=== PATIENT | female | born 1935 | race Caucasian/White ===

== ENCOUNTER 2016-08-04 13:16 | Inpatient (IN) | payer OTHER ==
[2016-08-04] MEDS ORDERED: TYLENOL PO PRN ×2 (15:14→15:20)
[2016-08-04 15:41] LABS: MANUAL DIFF NEEDED? NO
[2016-08-04 15:42] LABS: BASO% 0.5 % (0.0-0.8); EOS# 0.23 X1000 (0.0-0.7); HEMATOCRIT 37.3 % (37.0-47.0); HEMOGLOBIN 11.6 g/dL (12.0-16.0); IMM GRAN# 0.01 X1000 (0.0-0.04); IMM GRAN% 0.1 % (0.0-0.5); LYMPH# 1.61 X1000 (1.2-3.4); LYMPH% 21.2 % (20.5-51.1); MCH 27.1 PG (27-31); MCHC 31.1 g/dL (33-37); MCV 87.1 FL (81-99); MONO# 0.58 X1000 (0.11-0.59); MONO% 7.6 % (1.7-9.3); MPV 9.2 FL (7.4-10.4); NEUT% 67.6 % (42.2-75.2); PLT 346 X1000 (130-400); RBC 4.28 XMIL (4.2-5.4)
--- NOTE | 2016-08-04 15:45 | HISTORY AND PHYSICAL ---
PRIMARY CARE PHYSICIAN: Boy Conde MD. CHIEF COMPLAINT: Sent from wound care by Dr. Dc Sanchez, Surgery, for a nonhealing wound to her right calf. HISTORY OF PRESENTING ILLNESS: This is an 80-year-old, female who was sent [facility] today as a direct admit by Dr. Dc Sanchez, Surgeon, for a nonhealing wound to her right calf. States he has been following her for a couple of weeks and she has not had any improvement in the treatment and feels that she needs IV antibiotics. So, she will be admitted for further evaluation and treatment. The patient is noted to have a dressing to her right calf at this time. She is noted to have some erythema and some mild warmth surrounding the wound. Dressing left dry and intact. She will be admitted for further evaluation and treatment. PAST MEDICAL HISTORY: Paroxysmal atrial fibrillation. Dementia, osteoarthritis , colon cancer, COPD, gastritis. PAST SURGICAL HISTORY: Of a hernia repair. FAMILY HISTORY: Noncontributory. SOCIAL HISTORY: She currently lives with family. Denies any tobacco, alcohol, or illicit drug use. ALLERGIES: Aspirin and sulfa drugs. HOME MEDICATIONS: A current list will be obtained and we will restart as appropriate. LABORATORY DATA: The patient is a direct admit and we are currently obtaining stat CBC and CMP. REVIEW OF SYSTEMS: She denies any fever, chills, blurred vision, dizziness, chest pain, coughing, shortness of breath. Denies any constipation, diarrhea, burning or hurting with urination. Has some mild pain to her right calf related to her nonhealing ulcer. PHYSICAL EXAMINATION: VITAL SIGNS: Currently being obtained by nursing staff as she was a direct admit. GENERAL: This is an 80-year-old female who is sitting up in the bed, and answers questions appropriately. HEENT: Normocephalic and atraumatic. Pupils are equal, round, reactive to light. Extraocular movements are intact. Oropharynx and nares are clear. NECK: Supple. LUNGS: Clear to auscultation bilaterally with equal lung expansion and chest wall movement. HEART: With regular rate and rhythm. No murmurs, rubs, or gallops. ABDOMEN: Soft, nontender, nondistended. Bowel sounds are present x4 quadrants. EXTREMITIES: There is no clubbing, cyanosis, or edema. NEUROLOGICAL: The cranial nerves 2-12 are grossly intact. ASSESSMENT: 1. Nonhealing wound ulcer to right posterior calf. 2. History of paroxysmal atrial fibrillation. 3. Dementia. 4. Osteoarthritis. PLAN: She was admitted as a direct admit from the [facility] by Dr. Sanchez today to the hospitalist service. Placed on telemetry. Healthy heart diet. We will consult Dr. Sanchez. Consult Wound Care. Check labs as previously stated. Placed on clindamycin 600 mg IV q.8, Tylenol 650 mg p.o. q.4 hours p.r.n., and Zofran 4 mg IV q.4 hours p.r.n. Further orders may be required after reviewing lab results. Dictated by CHAGO Goode for Leo Romano MD pt examined, agree with clindamycin, will add vancomycin until clinically improved and dc on clinda,will check venous doppler, arterial studies were negative recently; otherwise agree with above, [facility]
[2016-08-04 15:57] LABS: ALBUMIN 4.3 g/dL (3.5-5.0); CALCIUM 9.4 mg/dL (8.8-10.2); POTASSIUM 3.4 mmol/L (3.5-5.1); TOTAL BILIRUBIN 0.3 mg/dL (0.20-1.00); TOTAL PROTEIN 6.6 g/dL (6.3-8.3)
[2016-08-04] MEDS: CLINDAMYCIN 600 MG/NS 50 ML IV SCH ×2 (17:14→23:04)
[2016-08-04] MEDS ORDERED: KLOR-CON PO ONE (17:31)
[2016-08-04] MEDS ORDERED: VANCOMYCIN IV PER PHARMACY MISC SCH (18:00)
[2016-08-04] MEDS: ULTRAM PO PRN (18:44)
[2016-08-04] MEDS ORDERED: VANCOMYCIN 1,200 MG in NS 250 ML IV ONE (19:00)
[2016-08-04] MEDS ORDERED: BLISTEX MEDICATED BERRY LIP BALM TOP PRN (21:58)
[2016-08-04] MEDS: CALTRATE 600 PO SCH (21:59)
[2016-08-04] MEDS: VITAMIN D PO SCH (21:59)
[2016-08-04] MEDS: SANTYL OINT TOP SCH (21:59)
[2016-08-05] MEDS: ULTRAM PO PRN ×2 (03:53→21:49)
[2016-08-05 06:13] LABS: MANUAL DIFF NEEDED? NO
[2016-08-05 06:21] LABS: BASO% 0.7 % (0.0-0.8); EOS# 0.34 X1000 (0.0-0.7); HEMATOCRIT 33.8 % (37.0-47.0); HEMOGLOBIN 10.2 g/dL (12.0-16.0); IMM GRAN# 0.01 X1000 (0.0-0.04); IMM GRAN% 0.2 % (0.0-0.5); LYMPH# 1.42 X1000 (1.2-3.4); MCH 26.4 PG (27-31); MCHC 30.2 g/dL (33-37); MCV 87.6 FL (81-99); MONO# 0.65 X1000 (0.11-0.59); MONO% 11.4 % (1.7-9.3); MPV 9.6 FL (7.4-10.4); NEUT% 56.7 % (42.2-75.2); PLT 335 X1000 (130-400); RBC 3.86 XMIL (4.2-5.4)
[2016-08-05 06:49] LABS: AGAP 6; ALBUMIN 3.9 g/dL (3.5-5.0); ALKALINE PHOSPHATASE 109 U/L (32-104); BUN 17 mg/dL (8-22); CALCIUM 9.1 mg/dL (8.8-10.2); CHLORIDE 106 mmol/L (98-107); COSMO 277; GOT 22 U/L (10-30); GPT 18 U/L (10-36); POTASSIUM 5.2 mmol/L (3.5-5.1); SODIUM 138 mmol/L (136-145); TCO2 27 mmol/L (25-35); TOTAL PROTEIN 5.7 g/dL (6.3-8.3)
[2016-08-05] MEDS: CULTURELLE FOR KIDS PO SCH ×3 (08:15→16:24)
[2016-08-05] MEDS: VITAMIN D PO SCH ×2 (08:15→21:32)
[2016-08-05] MEDS: CALTRATE 600 PO SCH ×2 (08:15→21:32)
[2016-08-05] MEDS: CLINDAMYCIN 600 MG/NS 50 ML IV SCH ×3 (08:15→23:39)
[2016-08-05] MEDS: ARICEPT PO SCH (08:15)
[2016-08-05] MEDS: SANTYL OINT TOP SCH ×2 (08:15→21:35)
[2016-08-05] MEDS ORDERED: ASPIRIN PO SCH (09:00)
[2016-08-05] MEDS: ZOFRAN IV PRN ×2 (15:32→22:11)
[2016-08-06] MEDS: ZOFRAN IV PRN (04:47)
[2016-08-06 06:48] LABS: BASO% 0.1 % (0.0-0.8); EOS# 0.02 X1000 (0.0-0.7); EOS% 0.1 % (0.0-10.0); HEMOGLOBIN 12.9 g/dL (12.0-16.0); IMM GRAN# 0.02 X1000 (0.0-0.04); IMM GRAN% 0.1 % (0.0-0.5); LYMPH# 1.41 X1000 (1.2-3.4); LYMPH% 10.1 % (20.5-51.1); MANUAL DIFF NEEDED? YES; MCH 26.8 PG (27-31); MCHC 31.5 g/dL (33-37); MCV 85.2 FL (81-99); MONO# 0.57 X1000 (0.11-0.59); MONO% 4.1 % (1.7-9.3); NEUT% 85.5 % (42.2-75.2); PLT 403 X1000 (130-400); RBC 4.81 XMIL (4.2-5.4)
[2016-08-06 07:09] LABS: ALBUMIN 4.4 g/dL (3.5-5.0); CALCIUM 10.2 mg/dL (8.8-10.2); POTASSIUM 4.9 mmol/L (3.5-5.1); TOTAL BILIRUBIN 0.5 mg/dL (0.20-1.00); TOTAL PROTEIN 6.9 g/dL (6.3-8.3)
[2016-08-06] MEDS ORDERED: ZOFRAN IV PRN (07:30)
[2016-08-06] MEDS ORDERED: SODIUM CHLORIDE 0.9% INJ PRN (07:36)
[2016-08-06] MEDS ORDERED: PHENERGAN IV PRN (07:36)
[2016-08-06 07:48] LABS: LYMPHS 8 % (21-51); MONO 3 % (1-9)
--- NOTE | 2016-08-06 07:56 | Extremity Venous Study ---
PROCEDURE NAME: Venous U/S Right Leg - 08/05/2016 VENOUS FLOW EVALUATION: INDICATION: Swelling. Redness right lower leg. FINDINGS: The deep veins of the right lower extremity demonstrate appropriate compressibility and augmentation. No intraluminal thrombus is visualized. There is no evidence for DVT. The superficial veins are patent. IMPRESSION: No evidence for deep venous thrombosis of the right lower extremity. [facility]
[2016-08-06] MEDS: SANTYL OINT TOP SCH (07:59)
[2016-08-06] MEDS: CALTRATE 600 PO SCH ×2 (07:59→21:00)
[2016-08-06] MEDS: ARICEPT PO SCH (08:00)
[2016-08-06] MEDS: CLINDAMYCIN 600 MG/NS 50 ML IV SCH ×2 (08:00→15:34)
[2016-08-06] MEDS: VITAMIN D PO SCH ×2 (08:00→21:00)
[2016-08-06] MEDS: CULTURELLE FOR KIDS PO SCH (08:00)
--- NOTE | 2016-08-06 09:55 | PROGRESS NOTE ---
DATE: 08/06/2016 SUBJECTIVE: The patient states she is feeling fine. She denies any chest pain, palpitations. Denies any fevers, chills. Denies any current nausea, vomiting or abdominal pain. OBJECTIVE: Vital Signs reviewed: Temperature 98.0 degrees, pulse 81, respiratory rate 18, BP 146/68. General: Patient is awake, alert and oriented. She is lying in bed. Pleasant to talk with. Speech appears regular. Neck: Supple. CV: Regular rate and rhythm. Chest: Relatively clear. Abdomen: Soft. Extremities: Moves all extremities. Skin: Nonhealing wound ulceration to the right posterior calf with surrounding erythema. ASSESSMENT: 1. Nonhealing wound right posterior calf. Has failed outpatient management. We will admit for intravenous antibiotics. 2. Paroxysmal atrial fibrillation. 3. Chronic dementia. 4. Osteoarthritis. PLAN: The patient has been seen by Dr. Sanchez off and on at the wound clinic. Unfortunately, the wound continues to worsen. Therefore, we will admit the patient to the hospital. We will place on clindamycin and vancomycin. Will check arterial studies and continue to follow.
--- NOTE | 2016-08-06 09:57 | PROGRESS NOTE ---
DATE: 08/06/2016 SUBJECTIVE: Patient states she is feeling a little bit better from her right calf standpoint. However, she has had lots episodes of nausea and vomiting last night. Currently denies any chest pain, palpitations. States she is nauseated. Denies any fevers or chills. PHYSICAL EXAMINATION: Vital signs: Temperature 98, pulse 85-102, respiratory 18, BP 135/63, saturation 99% on room air. General: Patient is well developed, well nourished. Currently in no real respiratory distress. She is awake, alert. Neck: Supple. CV: Regular rate. Chest: Relatively clear. Abdomen: Soft. Extremities: Moves all extremities. Skin: Noted to have less erythema to her right calf. ASSESSMENT: 1. Nausea and vomiting. Undetermined significance at this point. 2. Abdominal pain. Uncertain if secondary to an acute infection or medication reaction. 3. Nonhealing wound right calf. Continues to improve, although slowly. 4. Dementia. PLAN: We will continue patient on vancomycin and clindamycin currently. Uncertain if the antibiotics are the cause of her current nausea. Will place her on Zofran and continue to follow. Further orders as needed.
[2016-08-06] MEDS ORDERED: REGLAN IV PRN (12:20)
[2016-08-06] MEDS: SODIUM CHLORIDE 0.9% INJ SCH (12:37)
[2016-08-06] MEDS: PROTONIX IV SCH (12:37)
[2016-08-06] MEDS ORDERED: ROCEPHIN 1 GM/NS 50 ML IV SCH (13:15)
[2016-08-06] MEDS ORDERED: TORADOL IV PRN (13:45)
--- NOTE | 2016-08-06 16:04 | Diag Imaging Result Document ---
PROCEDURE NAME: WARREN ABDOMEN - 08/06/2016 SINGLE SUPINE RADIOGRAPH OF THE ABDOMEN AND PELVIS: COMPARISON: 04/27/2016. FINDINGS: There are a few nonspecific gas-distended loop of bowel. These loops project over the pelvis and appear to represent small bowel loops. They are nonspecific and only moderately dilated. Partial small bowel obstruction versus ileus should be considered. There is no definite large-volume free abdominal gas. There is no definite organomegaly. There are multiple metallic clips and brandon projecting over the abdomen and pelvis. IMPRESSION: Nonspecific gas-distended loop of small bowel as described.
[2016-08-06] MEDS ORDERED: VANCOMYCIN 1 GM/NS 250 ML IV SCH (18:00)
[2016-08-06] MEDS ORDERED: OFIRMEV 1000 MG/ISOTONIC SOLN 100 ML IV ONE (21:00)
[2016-08-06] MEDS ORDERED: NS 250 ML IV ONE (22:37)
[2016-08-06] MEDS ORDERED: NS 250 ML ONE (22:43)
[2016-08-06] MEDS ORDERED: NS 1,000 ML IV SCH (22:45)
[2016-08-07] MEDS: CLINDAMYCIN 600 MG/NS 50 ML IV SCH ×2 (00:09→10:04)
[2016-08-07 06:41] LABS: HEMATOCRIT 34.7 % (37.0-47.0); HEMOGLOBIN 10.4 g/dL (12.0-16.0); MCH 26.1 PG (27-31); MPV 10.2 FL (7.4-10.4); RBC 3.99 XMIL (4.2-5.4)
[2016-08-07 07:16] LABS: AGAP 9; ALBUMIN 3.8 g/dL (3.5-5.0); ALKALINE PHOSPHATASE 95 U/L (32-104); BUN 23 mg/dL (8-22); CALCIUM 8.8 mg/dL (8.8-10.2); CHLORIDE 106 mmol/L (98-107); COSMO 287; GOT 18 U/L (10-30); GPT 15 U/L (10-36); MAGNESIUM 2.1 mg/dL (1.5-2.7); POTASSIUM 4.1 mmol/L (3.5-5.1); SODIUM 142 mmol/L (136-145); TCO2 27 mmol/L (25-35); TOTAL PROTEIN 5.5 g/dL (6.3-8.3)
[2016-08-07 08:10] LABS: URINE CULTURE PL NEEDED? NO; URINE SOURCE CLEAN CATCH
[2016-08-07 08:18] LABS: BILIRUBIN URINE NEGATIVE (NEGATIVE); BLOOD URINE NEGATIVE (NEGATIVE); CLARITY CLEAR (CLEAR); COLOR YELLOW; GLUCOSE URINE NEGATIVE (NEGATIVE); LEUKOCYTES URINE NEGATIVE (NEGATIVE); NITRITE URINE NEGATIVE (NEGATIVE); PROTEIN URINE NEGATIVE (NEGATIVE); UROBILINOGEN URINE NORMAL
[2016-08-07 08:41] LABS: URINE EPITHELIAL CELLS <10 /HPF (<10)
[2016-08-07] MEDS ORDERED: SANTYL OINT TOP SCH (09:00)
[2016-08-07] MEDS: CALTRATE 600 PO SCH ×2 (10:05→22:02)
[2016-08-07] MEDS: VITAMIN D PO SCH ×2 (10:05→22:02)
--- NOTE | 2016-08-07 12:01 | Diag Imaging Result Document ---
PROCEDURE NAME: CT ABD/PELVIS W/ IV CONT ONLY - 08/07/2016 CT ABDOMEN AND PELVIS WITH IV CONTRAST ONLY: A dose-reduction protocol was used. Exam performed with intravenous contrast only per request of the referring provider. COMPARISON: Compared with the without contrast exam of 04/27/2016. FINDINGS: The visualized lung bases show mild chronic bronchiectasis at the anterior bases. There are no acute abnormalities of the liver or adrenal glands identified. The gallbladder is distended similar to the previous exam. There are no calcified gallstones or pericholecystic inflammation identified. There is no gross biliary ductal dilatation identified. There is no pancreatic mass or inflammation identified. There are linear calcifications along the lateral margin of the spleen similar to the previous exam. There is a thin low-density rim along the superior lateral margin of the spleen which is difficult to compare since the previous exam did not have intravenous contrast. These findings may relate to residual changes from old splenic injury, such as old subcapsular hematoma. There is no acute appearing splenic injury identified. There are nonobstructing stones in the right kidney. There is no hydronephrosis. There is no discrete renal mass identified. There are no substantially enlarged lymph nodes identified. There are extensive atherosclerotic calcifications noted in the abdominal aorta and iliac arteries. There is mild wall thickening along much of the ileum, and there is retained fluid in the ileum. These findings are suspicious for ileitis/distal enteritis. There is mild distention of a couple of ileal loops. There is no substantial small bowel distention identified which would indicate small bowel obstruction. There is no abscess identified. There is no free air. There is a small amount of free fluid in the pelvis. There are postsurgical changes at the ileocecal junction. There are postsurgical changes at the rectosigmoid junction. IMPRESSION: 1. Mild wall thickening along and retained fluid in much of the ileum. This is suspicious for ileitis/distal enteritis. There is mild distention of a couple of ileal loops, but there is no substantial small bowel distention identified which would indicate a small bowel obstruction. 2. No abscess. No free air. Small amount of free fluid in pelvis. 3. Distended gallbladder similar to prior. No calcified gallstones or pericholecystic inflammation identified. 4. Nonobstructing stones in right kidney. No hydronephrosis. 5. Extensive atherosclerotic calcifications noted along the abdominal aorta and iliac arteries. [facility]
--- NOTE | 2016-08-07 12:02 | PROGRESS NOTE ---
DATE: 08/07/2016 SUBJECTIVE: Patient resting quietly in bed. States that she has had no further nausea or vomiting. No diarrhea. OBJECTIVE: Vital Signs: Temperature 98.4 degrees, pulse 86, respirations 18, blood pressure 138/62, saturating 96% on room air. General: This is an 80-year-old female who is lying in the bed, and answers questions appropriately. HEENT: Normocephalic and atraumatic. Pupils are equal, round, reactive to light. Extraocular movements are intact. The oropharynx and nares are clear. Neck: Supple. Lungs: Clear bilaterally with equal lung expansion and chest wall movement. Heart: With regular rate and rhythm. No murmurs, rubs, or gallops. Abdomen: Soft, nontender, nondistended. Bowel sounds are present x4 quadrants. Extremities: Dressing to right lower leg intact. Wound area improving slowly. No surrounding erythema, edema, or warmth to touch noted. LABORATORY DATA: Showed a white blood cell count of 8.88, hemoglobin 10.4, hematocrit 34.7, platelets 351,000, sodium 142, potassium 4.1, chloride 106, CO2 27, BUN of 23, creatinine 0.8, glucose 109. Urinalysis was negative. X-ray of abdomen showed nonspecific gas , distended loops of small bowel as described. We have obtained a CT of the abdomen and pelvis with contrast but those results are pending. ASSESSMENT: 1. Nausea and vomiting. This is improved. We will give her some clear liquids at this time. We will await the final results of the CT of the abdomen and pelvis. 2. Abdominal pain. Denies currently. 3. Nonhealing wound to her right calf continues to improve. Continue IV antibiotics. Surgery following. 4. Dementia, stable. Dictated by CHAGO Goode for Leo Romano MD pt examined, pt has severe terminal ileitis, unclear source, will get GI opinion , will transfer to [facility], is a pt of vero, discussed case with [place], who will assume care, at [facility], clinically improved, will advance diet, placed on merrem, and continue vanc for cellluitis, will stop clinda, and follow [facility]
[2016-08-07] MEDS: PROTONIX IV SCH (12:33)
[2016-08-07] MEDS: SODIUM CHLORIDE 0.9% INJ SCH (12:34)
[2016-08-07] MEDS ORDERED: MERREM 1 GM in NS 50 ML IV SCH (12:45)
--- NOTE | 2016-08-07 13:46 | PROGRESS NOTE ---
DATE: 08/06/2016 SUBJECTIVE: The patient was seen on the afternoon of 08/06/2016, overall doing okay. She continues to have some discomfort in her legs. She received IV antibiotics. She also complains of some nausea since being admitted. OBJECTIVE: No fevers noted and no tachycardia.General: She is alert, oriented. Abdomen: Soft, nontender, nondistended. Extremities: Her right lower extremity shows mildly improved cellulitis and definitely no worsening. She has got a dressing in place here. I reviewed her labs. There was a mild leukocytosis yesterday at 13 but hematocrit of 41. This is up significantly so I suspect volume contraction or lab error as the etiology here. Creatinine is 0.9. Bilirubin is normal. Transaminases were normal. Alkaline phosphatase mildly elevated at 133. ASSESSMENT/PLAN: This 80-year-old female who is quite debilitated has some dementia with a chronic wound on the right posterior calf and some persistent cellulitis skin changes associated with this. She is admitted to medicine service. She is on IV antibiotics and this seems to be gradually improving. Continue to monitor over the weekend. No plan for surgical intervention at this time. I appreciate Dr. Romano of the Medicine Service's help with management of this patient.
[2016-08-07] MEDS ORDERED: BLISTEX MEDICATED BERRY LIP BALM TOP PRN (16:58)
[2016-08-07] MEDS ORDERED: REGLAN IV PRN (17:12)
[2016-08-07] MEDS ORDERED: ZOFRAN IV PRN (17:16)
[2016-08-07 18:07] LABS: C DIFF ANTIGEN PL NEGATIVE (NEGATIVE); C DIFF TOXIN PL NEGATIVE (NEGATIVE)
[2016-08-07] MEDS: NS 1,000 ML IV SCH (18:28)
[2016-08-07] MEDS: VANCOMYCIN 1 GM/NS 250 ML IV SCH (18:48)
--- NOTE | 2016-08-07 20:04 | CONSULTATION ---
DATE OF CONSULTATION: 08/07/2016 REFERRING PHYSICIAN: Brock Romano MD. PRIMARY CARE PHYSICIAN: Boy Conde MD PRIMARY SURGEON: Dc Sanchez MD. INDICATION FOR CONSULTATION: Ileal colitis on CT scan. HISTORY OF PRESENT ILLNESS: The patient is a very pleasant 80-year-old white female who was admitted from wound clinic by Dr. Sanchez for a nonhealing wound ulcer to her right calf. Upon admission she received IV antibiotics and IV pain medications. According to her daughter, she developed nausea with vomiting and abdominal pain approximately 24 hours later. Because the nausea, vomiting persisted CT scan of the abdomen and pelvis was obtained and is remarkable for ileitis. She has a history of colon cancer that was resected in the . She is unable to provide any additional information. Because of her history, we are asked to participate in her care. PAST MEDICAL HISTORY: 1. Dementia. 2. Osteoarthritis. 3. Colon cancer. 4. Gastritis. 5. COPD. 6. Paroxysmal atrial fibrillation. PAST SURGICAL HISTORY: 1. Hernia repair. 2. Colon cancer resection with a partial colon resection. FAMILY HISTORY: Remarkable that her twin brother from colon cancer in his 70s. Her mother had cancer in her 70s and multiple members on her mother's side have colorectal cancer. SOCIAL HISTORY: The patient lives with her family. She denies tobacco use at the present. She previously smoked for 43 years 1 pack per day. She stopped smoking approximately 15 years ago. She denies alcohol or recreational drug use. MEDICATION ALLERGIES: 1. Aspirin. 2. Sulfa. HOME MEDICATIONS: 1. Ultram. 2. Calcium. 3. Vitamin D3. 4. Aricept. 5. Santyl ointment. 6. Aspirin 81 mg. 7. Tylenol as needed. REVIEW OF SYSTEMS: Remarkable for resolution of the nausea with vomiting. She denies abdominal pain and states that her leg hurts. She denies chest pain, shortness of breath, fevers and chills. PHYSICAL EXAM: Vital signs: Her blood pressure is 116/46, pulse is 68, respiration 18, temperature of 99.0 degrees. Her T-max overnight was 100.1 degrees. HEENT: Unremarkable. Oropharyngeal mucosa membranes are pink and moist. Her sclerae are anicteric. Her conjunctivae are normal. Chest: Clear to auscultation with normal expiratory effort. Cardiovascular: Reveals a regular rate and rhythm. There are no murmurs, gallops, or rubs. Abdominal Exam: Reveals normoactive bowel sounds. The abdomen is soft, nontender with no rebound or guarding. There is no evidence of abdominal distention. Extremities: Negative for edema. She has cellulitis and a ulcer in her right lower extremity below the knee. The skin of the right leg is not warm to the touch. She does have voluntary guarding. Neurologic Exam: She is alert and oriented. She is able to provide part of the history but struggles with recall of certain details. OBJECTIVE DATA: Remarkable for hemoglobin of 10.4 with hematocrit of 34.7 and white count of 8.8. She has 351,000 platelets. Sodium is 142, potassium 4.1, chloride 106, CO2 27, BUN 23, creatinine 0.8 with a glucose of 109. Calcium is 8.8, magnesium 2.1, total bilirubin 0.4, AST 18, ALT 15, alkaline phosphatase 95, total protein 5.5 and albumin 3.8. Stool studies are negative for C. difficile antigen and toxin. IMPRESSION: 1. Ileitis. 2. Personal history of colon cancer. 3. Family history of colon cancer. RECOMMENDATION: 1. In light of the patient's family history, please continue IV meropenem and IV vancomycin. I will complete a 10 day course of antibiotics. Once the inflammation is resolved we can safely perform a colonoscopy for further evaluation of the ileitis to determine the cause. This will also allow us to monitor for polyps and screen for recurrence of her colon cancer. 2. Continue Protonix as you are doing. 3. I will monitor inflammatory markers including a CRP as well as her CBC. 4. She is on a clear liquid diet. I would advance to a full liquid tomorrow if she is able to tolerate the clear liquid diet tonight. I anticipate being able to advance her to a GI soft diet prior to discharge. 5. Please check stool for lactoferrin and consider an IBD profile although she is 80, she is at the tail end of the 2nd peak for new onset inflammatory bowel disease. Although it is unlikely, it is prudent to evaluate. 6. She has a history of colon cancer. Therefore, I will also check a CEA in light of her personal history. 7. Additional recommendations to follow based on her clinical course.
[2016-08-07] MEDS: MERREM 1 GM in NS 50 ML IV SCH (22:03)
[2016-08-08] MEDS: MERREM 1 GM in NS 50 ML IV SCH ×3 (06:33→22:21)
[2016-08-08 06:49] LABS: HEMATOCRIT 34.7 % (37.0-47.0); HEMOGLOBIN 10.8 g/dL (12.0-16.0); MCH 27.5 PG (27-31); MCHC 31.1 g/dL (33-37); MCV 88.3 FL (81-99); MPV 9.8 FL (7.4-10.4); RBC 3.93 XMIL (4.2-5.4)
[2016-08-08 07:27] LABS: AGAP 9; BUN 15 mg/dL (8-22); CALCIUM 8.9 mg/dL (8.8-10.2); CHLORIDE 106 mmol/L (98-107); COSMO 286; POTASSIUM 4.7 mmol/L (3.5-5.1); SODIUM 143 mmol/L (136-145); TCO2 28 mmol/L (25-35)
[2016-08-08] MEDS: SANTYL OINT TOP SCH (09:43)
[2016-08-08] MEDS: CALTRATE 600 PO SCH ×2 (09:43→20:17)
[2016-08-08] MEDS: VITAMIN D PO SCH ×2 (09:43→20:16)
[2016-08-08] MEDS: TYLENOL PO PRN (09:58)
--- NOTE | 2016-08-08 11:33 | PROGRESS NOTE ---
DATE: 08/08/2016 SUBJECTIVE: The patient is admitted to Dr. Pollard. Apparently she had been seen as an outpatient initially and then at [facility] but admitted eventually to [facility] and was being seen by the hospitalist but has been transferred over to our service. Dr. Conde apparently is her regular physician, but he is out of town. She comes in with a nonhealing wound to the right lower extremity and also has colitis. Clostridium difficile checks were negative. She is on IV antibiotics. OBJECTIVE: Vital signs show blood pressure 138/56, respirations 17, pulse 67, temperature 98.4 degrees Fahrenheit. HEENT: She is normocephalic. EOMs intact. PERRLA. Throat clear. Lungs: Clear to auscultation and percussion without rhonchi, rales or wheezes. Heart: Regular rate and rhythm without murmurs, gallops or friction rubs. Abdomen: Soft. Active bowel sounds. No organomegaly or tenderness. Neurologic: Intact grossly. She does have a nonhealing wound to the right lower extremity around the right calf. ASSESSMENT: 1. Nonhealing wound of right calf. 2. Colitis. PLAN: Continue IV antibiotics. Dr. Sanchez has seen her for surgery and Dr. Diaz from Gastroenterology.
[2016-08-08] MEDS: VANCOMYCIN 1 GM/NS 250 ML IV SCH (18:02)
[2016-08-08] MEDS: PROTONIX IV SCH (18:03)
[2016-08-08] MEDS: NS 1,000 ML IV SCH ×2 (18:03→20:16)
--- NOTE | 2016-08-08 22:11 | PROGRESS NOTE ---
DATE: 08/08/2016 SUBJECTIVE: The patient was examined earlier today. She states that she feels much better. She denies abdominal pain, nausea with vomiting and diarrhea. She reports that she is extremely hungry and does not like a clear liquid diet. She is specifically requesting chicken noodle soup and yogurt. She reports that her right lower extremity continues to hurt but each day she feels somewhat better. OBJECTIVE: Vital signs: Blood pressure is 126/57, pulse 69, respiration 18, temperature of 98.3 degrees. Abdomen: Reveals normoactive bowel sounds. The abdomen is soft, nontender with no rebound or guarding. Extremities: Bilaterally are negative for edema. She does have a right lower extremity wound that is healing. OBJECTIVE DATA: Remarkable for hemoglobin of 10.8 with hematocrit of 34.7 and white count 7.22. Her platelet count is 347,000. Sodium 143, potassium 4.7, chloride 106, CO2 28, BUN 15, creatinine 0.7 with a glucose of 96. Calcium is 8.9. Her CEA is 3.9 and her CRP is 7.86. Calcium is 8.9. IMPRESSION: 1. Ileitis on CT scan. 2. Personal history of colon cancer. 3. Family history of colon cancer. RECOMMENDATION: 1. Continue IV antibiotics for now. I would transition to oral therapy as soon as she is able to advance her diet. Please complete 10 day course of antibiotics. 2. Once she has completed her antibiotics will schedule an outpatient EGD and colonoscopy as her hemoglobin has remained stable. 3. Await the results of her lab studies and stool studies. 4. Please consider advancing her diet. I would continue to advance her diet as tolerated to a GI soft. 5. Additional recommendations to follow based on her clinical course.
[2016-08-09] MEDS: MERREM 1 GM in NS 50 ML IV SCH ×3 (06:09→21:01)
[2016-08-09] MEDS: SANTYL OINT TOP SCH (10:22)
[2016-08-09] MEDS: CALTRATE 600 PO SCH ×2 (10:22→21:01)
[2016-08-09] MEDS: VITAMIN D PO SCH ×2 (10:22→21:01)
[2016-08-09] MEDS: NS 1,000 ML IV SCH (10:22)
--- NOTE | 2016-08-09 11:57 | PROGRESS NOTE ---
DATE: 08/09/2016 SUBJECTIVE: The patient says her leg is no better. OBJECTIVE: Vital Signs: Blood pressure 116/49, respirations 18, pulse 76, temperature 97.9 degrees Fahrenheit. HEENT: She is normocephalic. EOMs intact. PERRLA. Throat clear. Lungs: Clear to auscultation and percussion without rhonchi, rales, or wheezes. Heart: Regular rate and rhythm without murmurs, gallops, or friction rubs. Abdomen: Soft with active bowel sounds. No organomegaly or tenderness. Extremities: Does have redness of the right lower extremity with a wound that is not healing. This looks like a cellulitis to me. She is on IV vancomycin. Laboratory Data: White count had gotten up to 13,970. Yesterday, it was 7220. Hemoglobin 10.8. The patient also has a colitis. ASSESSMENT: 1. Nonhealing wound of the right lower extremity with possible cellulitis. Could be venous stasis with this as well. 2. Colitis. PLAN: We will advance diet as she is getting hungry and continue IV antibiotics.
[2016-08-09] MEDS: PROTONIX IV SCH (17:56)
[2016-08-09] MEDS: VANCOMYCIN 1 GM/NS 250 ML IV SCH (17:57)
[2016-08-10] MEDS: MERREM 1 GM in NS 50 ML IV SCH ×3 (05:33→21:20)
[2016-08-10 07:11] LABS: BASO% 0.6 % (0.0-0.8); EOS# 0.29 X1000 (0.0-0.7); EOS% 4.6 % (0.0-10.0); HEMATOCRIT 34.5 % (37.0-47.0); HEMOGLOBIN 10.8 g/dL (12.0-16.0); IMM GRAN# 0.02 X1000 (0.0-0.04); IMM GRAN% 0.3 % (0.0-0.5); LYMPH# 1.45 X1000 (1.2-3.4); MANUAL DIFF NEEDED? NO; MCH 27.1 PG (27-31); MCHC 31.3 g/dL (33-37); MCV 86.7 FL (81-99); MONO# 0.57 X1000 (0.11-0.59); MPV 9.7 FL (7.4-10.4); NEUT% 62.5 % (42.2-75.2); PLT 324 X1000 (130-400); RBC 3.98 XMIL (4.2-5.4)
[2016-08-10 07:34] LABS: AGAP 11; BUN 13 mg/dL (8-22); CALCIUM 8.5 mg/dL (8.8-10.2); CHLORIDE 107 mmol/L (98-107); COSMO 289; POTASSIUM 3.9 mmol/L (3.5-5.1); SODIUM 145 mmol/L (136-145); TCO2 27 mmol/L (25-35)
[2016-08-10] MEDS: VITAMIN D PO SCH ×2 (08:27→21:21)
[2016-08-10] MEDS: CALTRATE 600 PO SCH ×2 (08:27→21:21)
--- NOTE | 2016-08-10 08:57 | PROGRESS NOTE ---
DATE: 08/10/2016 Ms. Carbajal is doing fairly well. Her CBC shows white count is normal. Electrolytes are normal. Stool culture is negative. She was seen by Dr. Diaz on 08/08/2016. Dr. Diaz suggested to continue the IV antibiotics and wants a diet, and she wants to do an EGD and colonoscopy at a later date. We are going to continue her IV vancomycin which she is getting for the cellulitis. She is also getting IV Protonix. Overall condition is stable. She has cellulitis on the right leg. We will continue the current management.
[2016-08-10] MEDS: SANTYL OINT TOP SCH (10:00)
[2016-08-10] MEDS: NS 1,000 ML IV SCH ×3 (11:29→17:43)
[2016-08-10] MEDS: PROTONIX IV SCH (16:06)
[2016-08-10] MEDS: SODIUM CHLORIDE 0.9% INJ SCH (16:06)
[2016-08-10] MEDS: VANCOMYCIN 1 GM/NS 250 ML IV SCH (22:41)
[2016-08-11] MEDS: TYLENOL PO PRN ×3 (02:27→22:14)
[2016-08-11] MEDS: NS 1,000 ML IV SCH (05:39)
[2016-08-11] MEDS: MERREM 1 GM in NS 50 ML IV SCH ×3 (05:43→21:51)
[2016-08-11 06:40] LABS: MANUAL DIFF NEEDED? NO
[2016-08-11 06:43] LABS: BASO% 0.4 % (0.0-0.8); EOS# 0.29 X1000 (0.0-0.7); EOS% 3.6 % (0.0-10.0); HEMATOCRIT 31.4 % (37.0-47.0); HEMOGLOBIN 9.9 g/dL (12.0-16.0); IMM GRAN# 0.02 X1000 (0.0-0.04); IMM GRAN% 0.3 % (0.0-0.5); LYMPH# 1.55 X1000 (1.2-3.4); LYMPH% 19.4 % (20.5-51.1); MCH 27.3 PG (27-31); MCHC 31.5 g/dL (33-37); MCV 86.5 FL (81-99); MONO# 0.77 X1000 (0.11-0.59); MONO% 9.7 % (1.7-9.3); MPV 9.5 FL (7.4-10.4); NEUT% 66.6 % (42.2-75.2); PLT 294 X1000 (130-400); RBC 3.63 XMIL (4.2-5.4)
[2016-08-11 07:08] LABS: AGAP 11; BUN 12 mg/dL (8-22); CALCIUM 8.5 mg/dL (8.8-10.2); CHLORIDE 105 mmol/L (98-107); COSMO 281; POTASSIUM 3.6 mmol/L (3.5-5.1); SODIUM 141 mmol/L (136-145); TCO2 25 mmol/L (25-35)
--- NOTE | 2016-08-11 07:57 | PROGRESS NOTE ---
DATE: 08/11/2016 SUBJECTIVE: Feels better. Decreased pain in the leg. No abdominal pain. OBJECTIVE: Vital signs: She is afebrile. There is no tachycardia. Blood pressure 104/53 this morning. LABORATORY DATA: I reviewed her labs. White count is down to 7. Hematocrit is 31. Creatinine is normal at 0.6. Glucoses have been well controlled. It was 94 this morning. ASSESSMENT AND PLAN: This is an 80-year-old female with chronic cellulitis of her right lower extremity with a nonhealing wound. She also had some abdominal pain on admission that has resolved now and was found to have some terminal ileitis. Her cellulitis in the leg is looking better. The wound is clean. Will continue with local wound care here. Regarding her terminal ileitis, I believe the patient does carry a previous history of colon cancer. Dr. Diaz has been engaged. She does have an elevation in her CEA, unclear of the etiology of this, however, this is concerning. She will need a colonoscopy in the future. Will continue to follow long. Appreciate the hospitalists help.
[2016-08-11] MEDS: SANTYL OINT TOP SCH (09:47)
[2016-08-11] MEDS: CALTRATE 600 PO SCH ×2 (09:47→21:52)
[2016-08-11] MEDS: VITAMIN D PO SCH ×2 (09:47→21:52)
[2016-08-11] MEDS: PROTONIX IV SCH (13:31)
[2016-08-11] MEDS: VANCOMYCIN 1 GM/NS 250 ML IV SCH (13:31)
[2016-08-11] MEDS: SODIUM CHLORIDE 0.9% INJ SCH (13:31)
--- NOTE | 2016-08-11 13:31 | PROGRESS NOTE ---
DATE: 08/11/2016 Ms. Jadyn Carbajal is doing better. Cellulitis is improving. The diarrhea is much better. She is on imipenem and vancomycin for cellulitis which is improving. I am going to continue it as the cellulitis is not completely better yet.
[2016-08-12] MEDS: NS 1,000 ML IV SCH ×2 (03:57→15:49)
[2016-08-12] MEDS: MERREM 1 GM in NS 50 ML IV SCH (05:52)
[2016-08-12 06:47] LABS: MANUAL DIFF NEEDED? NO
[2016-08-12 07:04] LABS: BASO% 0.8 % (0.0-0.8); EOS# 0.36 X1000 (0.0-0.7); HEMATOCRIT 33.8 % (37.0-47.0); HEMOGLOBIN 10.5 g/dL (12.0-16.0); LYMPH# 1.13 X1000 (1.2-3.4); LYMPH% 22.1 % (20.5-51.1); MCH 27.1 PG (27-31); MCHC 31.1 g/dL (33-37); MCV 87.3 FL (81-99); MONO# 0.48 X1000 (0.11-0.59); MONO% 9.4 % (1.7-9.3); MPV 9.8 FL (7.4-10.4); NEUT% 60.7 % (42.2-75.2); PLT 284 X1000 (130-400); RBC 3.87 XMIL (4.2-5.4)
[2016-08-12 07:24] LABS: AGAP 7; BUN 11 mg/dL (8-22); CALCIUM 9.1 mg/dL (8.8-10.2); CHLORIDE 103 mmol/L (98-107); COSMO 277; POTASSIUM 3.8 mmol/L (3.5-5.1); SODIUM 139 mmol/L (136-145); TCO2 29 mmol/L (25-35)
[2016-08-12] MEDS: VANCOMYCIN 1 GM/NS 250 ML IV SCH (08:35)
[2016-08-12] MEDS: CALTRATE 600 PO SCH ×2 (08:38→20:26)
[2016-08-12] MEDS: VITAMIN D PO SCH ×2 (08:38→20:26)
[2016-08-12] MEDS: SANTYL OINT TOP SCH (08:38)
[2016-08-12] MEDS: LEVAQUIN 750 MG/D5W 150 ML IV SCH (11:57)
[2016-08-12] MEDS: PROTONIX IV SCH (11:59)
[2016-08-12] MEDS: TYLENOL PO PRN (20:29)
[2016-08-13] MEDS: VANCOMYCIN 1 GM/NS 250 ML IV SCH ×2 (03:40→21:52)
--- NOTE | 2016-08-13 09:55 | PROGRESS NOTE ---
DATE: 08/13/2016 SUBJECTIVE: Ms. Carbajal still has continuing cellulitis with severe burning and pain. She is very symptomatic and cellulitis is not that much better. We will change from Imipenem to Levaquin yesterday. Culture results are not back. She is seen by the wound nurse. -8
[2016-08-13] MEDS: CALTRATE 600 PO SCH ×2 (10:16→21:12)
[2016-08-13] MEDS: VITAMIN D PO SCH ×2 (10:17→21:12)
[2016-08-13] MEDS: SANTYL OINT TOP SCH (10:17)
[2016-08-13] MEDS: LEVAQUIN 750 MG/D5W 150 ML IV SCH (10:17)
[2016-08-13] MEDS: SODIUM CHLORIDE 0.9% INJ SCH (14:53)
[2016-08-13] MEDS: PROTONIX IV SCH (14:53)
[2016-08-13] MEDS: TYLENOL PO PRN (21:12)
[2016-08-14] MEDS: NS 1,000 ML IV SCH ×4 (03:32→22:36)
[2016-08-14] MEDS: CALTRATE 600 PO SCH ×2 (10:56→21:15)
[2016-08-14] MEDS: VITAMIN D PO SCH ×2 (10:56→21:15)
[2016-08-14] MEDS: LEVAQUIN 750 MG/D5W 150 ML IV SCH (10:56)
[2016-08-14] MEDS: SANTYL OINT TOP SCH (10:56)
--- NOTE | 2016-08-14 11:15 | PROGRESS NOTE ---
DATE: 08/14/2016 SUBJECTIVE: Ms. Carbajal is in about the same general condition. She does have severe cellulitis. It is spreading to the left leg. The wound culture has not shown any positive cultures yet. She is getting IV vancomycin as well as Levaquin now. We stopped the imipenem as it was not helping her. -0
[2016-08-14] MEDS: SODIUM CHLORIDE 0.9% INJ SCH (14:19)
[2016-08-14] MEDS: PROTONIX IV SCH (14:19)
--- NOTE | 2016-08-14 16:53 | CONSULTATION ---
DATE OF CONSULTATION: 08/14/2016 CONCLUSION: The patient has a right leg cellulitis and the beginning of cellulitis on the left leg which has not been helped by antimicrobial therapy consisting of vancomycin and Levaquin. RECOMMENDATIONS: I have started the patient on a combination of cefepime and fluconazole. I have repeated the patient's culture from the right leg, also. I have discontinued vancomycin and Levaquin. DISCUSSION: The patient told me that for years she had erythema in her right leg and in the past month she developed an ulcer posteriorly in the legs. About 2 weeks ago her left leg started becoming erythematous. She has not had any fever or chills. She denies trauma to her legs. LABORATORY STUDIES: Her CBC shows a white count of 5110, hemoglobin 10.5, and platelet count 284,000. Creatinine is 0.6. The patient had a CT scan of the abdomen which showed mild wall thickening but no abscess. There was a distended gallbladder. There were some stones in the right kidney and there were extensive atherosclerotic calcifications along the aorta and iliac arteries. PAST MEDICAL HISTORY/REVIEW OF SYSTEMS: Eyes and ears: She denies difficulty hearing or seeing. Neck: No stiffness. Respiratory: No cough or shortness of breath. Cardiovascular: No chest pain or palpitations. GI: Patient since she has had part of her colon removed because of cancer has had an increase in the frequency and looseness of her stool. This has been going on for years. No nausea or vomiting. No abdominal pain. Neurologic: No motor or sensory deficit. No seizures. Endocrine: The patient does not have diabetes or thyroid disease. The remainder of the patient's review of systems was completed and was negative. FIREBREAK CUTTER HISTORY: She is a 4 para 4 AB 0. PREVIOUS HOSPITALIZATIONS/OPERATIONS: She has had a partial colectomy for colon cancer, admission for hernia repair and also admission for pneumonia. MEDICAL DISEASES: Positive for chronic leg edema, paroxysmal atrial fibrillation, dementia, COPD, gastritis, colon cancer. INFECTIOUS DISEASE HISTORY: Positive for pneumonia and UTI. FAMILY HISTORY: Positive for cancer and hypertension. SOCIAL HISTORY[place] . She does not smoke cigarettes or drink alcoholic beverages. She does not abuse drugs. She lives alone. She has dogs for pets. ALLERGIES: Aspirin and sulfa. HOME MEDICATIONS: Include tramadol, calcium, cholecalciferol, Aricept, Santyl ointment, aspirin and Tylenol. PHYSICAL EXAMINATION: Vital Signs: Temperature is 98.2 degrees, pulse 80, respirations 19, blood pressure 123/51. Patient weighs 108 pounds. General: This is a slightly ill-appearing elderly female who is in no acute distress. HEENT: Head, eyes, ears, nose, and throat, she can hear my spoken words and see near objects. No drainage noted from the nose or ears. Neck: No meningismus. Thorax: No increased AP diameter of the chest. Lungs: Clear to auscultation. Cardiovascular: Regular heart rate. Diminished peripheral pulses. Abdomen: Soft and nontender. Extremities: The right leg was much more erythematous than the left leg. Posteriorly on the right leg there was a superficially ulcerated area about 2-3 cm in diameter. A culture was taken from this. Neurologic: Patient is awake. She can move her extremities. There is no tremor. Her sensation is intact to touch. Her memory, as regarding her medical history, was slightly decreased. Thank you for the consult.
[2016-08-14] MEDS: MAXIPIME 1 GM/NS 50 ML IV SCH (18:21)
[2016-08-14] MEDS: DIFLUCAN PO SCH (18:21)
[2016-08-14] MEDS: TYLENOL PO PRN (21:15)
[2016-08-15] MEDS: MAXIPIME 1 GM/NS 50 ML IV SCH ×3 (00:26→17:20)
[2016-08-15] MEDS: TYLENOL PO PRN ×2 (04:16→17:20)
[2016-08-15] MEDS: NS 1,000 ML IV SCH ×3 (04:16→17:21)
[2016-08-15] MEDS: SODIUM CHLORIDE 0.9% INJ SCH (12:01)
[2016-08-15] MEDS: PROTONIX IV SCH (12:01)
[2016-08-15] MEDS: VITAMIN D PO SCH ×2 (12:03→22:05)
[2016-08-15] MEDS: CALTRATE 600 PO SCH ×2 (12:03→22:05)
--- NOTE | 2016-08-15 13:22 | PROGRESS NOTE ---
DATE: 08/15/2016 SUBJECTIVE: Ms. Carbajal continues to have cellulitis with an ulcer, which does not show any bacterial growth. Her antibiotics have been changed to an antifungal agent and cefepime, vancomycin and Levaquin have been stopped by Dr. Simpson. Repeat culture has been done. We will continue with the current management. -8
[2016-08-15] MEDS: DIFLUCAN PO SCH (17:20)
[2016-08-15] MEDS: ANUSOL-HC CREAM PR SCH (22:05)
[2016-08-16] MEDS: MAXIPIME 1 GM/NS 50 ML IV SCH ×3 (00:27→16:18)
[2016-08-16] MEDS: NS 1,000 ML IV SCH ×2 (02:12→16:18)
[2016-08-16] MEDS: ANUSOL-HC CREAM PR SCH ×2 (07:59→21:43)
[2016-08-16] MEDS: CALTRATE 600 PO SCH ×2 (07:59→21:43)
[2016-08-16] MEDS: VITAMIN D PO SCH ×2 (08:02→21:43)
--- NOTE | 2016-08-16 12:14 | PROGRESS NOTE ---
DATE: 08/16/2016 Ms. Carbajal's rash is somewhat better. Her lungs are clear. Heart sounds are normal. Her wound culture had repeat 2nd time also does not show any growth. Her vital signs are stable. We will continue the current management on her. -2
[2016-08-16] MEDS: PROTONIX IV SCH (13:09)
[2016-08-16] MEDS: TYLENOL PO PRN (13:09)
[2016-08-16] MEDS: DIFLUCAN PO SCH (16:18)
[2016-08-17] MEDS: MAXIPIME 1 GM/NS 50 ML IV SCH ×4 (00:41→23:53)
[2016-08-17] MEDS: NS 1,000 ML IV SCH ×2 (06:15→18:14)
--- NOTE | 2016-08-17 07:14 | PROGRESS NOTE ---
DATE: 08/17/2016 SUBJECTIVELY: Ms. Carbajal is doing better. The patient does have nonhealing ulcer on the right leg posteriorly. No fever or chills. We are doing local wound care. Also, the patient is on IV antibiotics. Surgeon and ID specialist following patient with us. So far, the wound culture is negative. The patient is also found to have ileitis. A workup for inflammatory bowel disease is negative. No fever or chills. Denied any nausea, vomiting. No diarrhea, blood or mucus in the stool. Admission history, physical, surgical and ID consult noted. PHYSICAL EXAMINATION: Vital Signs: Reviewed. Neck: Supple. No JVD. Lungs: Bilateral good air entry present. CVS: S1 and S2 heard. Abdomen: Soft, globular. Bowel sounds present. SEWER DIGGER: Alert, awake. Able to move all 4 limbs. Skin: The patient does have a nonhealing ulcer on the right leg posteriorly with some surrounding redness. Also, she had some redness on the left leg. CONSIDERATION: 1. Nonhealing ulcer on the right leg. 2. Alzheimer's type dementia. 3. Terminal ileitis. Patient had esophagogastroduodenoscopy and colonoscopy done a few months ago by Dr. Nagy. 4. Paroxysmal atrial fibrillation. 5. Gastritis. LAB DATA: Done on August 12 noted. PLAN: Plan is to continue current treatment and close observation. Freezing Machine Operator, ID specialist, and surgeon following patient with us.
[2016-08-17] MEDS: TYLENOL PO PRN ×2 (09:41→20:25)
[2016-08-17] MEDS: CALTRATE 600 PO SCH ×2 (09:41→20:25)
[2016-08-17] MEDS: ANUSOL-HC CREAM PR SCH ×2 (09:41→20:25)
[2016-08-17] MEDS: VITAMIN D PO SCH ×2 (09:41→20:25)
[2016-08-17] MEDS: PROTONIX IV SCH (11:33)
[2016-08-17] MEDS: DIFLUCAN PO SCH (16:26)
--- NOTE | 2016-08-17 16:43 | PROGRESS NOTE ---
DATE: 08/17/2016 PRESENT ILLNESS: The patient has cellulitis involving the right leg to a greater extent than there is on the left leg. MEDICATIONS: The patient has been receiving cefepime intravenously as well as local therapy for the patient's right posterior leg superficial ulceration. This is day 3 of treatment with the antibiotic. PHYSICAL EXAMINATION: Vital Signs: Temperature is 97.7 degrees, pulse 66, respirations 14, blood pressure 107/37. General: This is a somewhat ill-appearing, elderly female. She is in no acute distress. Lungs: Clear to auscultation. Cardiovascular: Regular heart rate. Abdomen: Soft and nontender. Extremities: The erythema has pretty much cleared from the whole of the left leg. The right leg also is less erythematous. She does have the posterior ulcer which might be getting smaller also. LAB AND X-RAY: There is no new lab or x-ray for today. ASSESSMENT AND PLAN: Patient has leg cellulitis. From my point of view, the patient could be discharged home with local therapy and I would suggest treating her with Ceftin 500 mg b.i.d. for an additional 10 days. Also, I told the patient to try to elevate her legs as much as possible when she is not standing or walking. The patient's comorbidities are that she is very elderly and she has a history of having chronic leg edema.
[2016-08-18] MEDS: TYLENOL PO PRN ×2 (04:32→23:58)
[2016-08-18 07:27] LABS: MANUAL DIFF NEEDED? NO
[2016-08-18 07:55] LABS: AGAP 9; ALBUMIN 3.4 g/dL (3.5-5.0); ALKALINE PHOSPHATASE 90 U/L (32-104); BUN 21 mg/dL (8-22); CALCIUM 8.9 mg/dL (8.8-10.2); CHLORIDE 105 mmol/L (98-107); COSMO 285; GOT 16 U/L (10-30); GPT 9 U/L (10-36); POTASSIUM 4.3 mmol/L (3.5-5.1); SODIUM 142 mmol/L (136-145); TCO2 28 mmol/L (25-35); TOTAL PROTEIN 5.6 g/dL (6.3-8.3)
[2016-08-18 07:58] LABS: EOS# 0.33 X1000 (0.0-0.7); EOS% 6.3 % (0.0-10.0); HEMATOCRIT 33.7 % (37.0-47.0); HEMOGLOBIN 10.4 g/dL (12.0-16.0); LYMPH# 1.72 X1000 (1.2-3.4); LYMPH% 32.8 % (20.5-51.1); MCH 26.7 PG (27-31); MCHC 30.9 g/dL (33-37); MCV 86.4 FL (81-99); MONO# 0.57 X1000 (0.11-0.59); MONO% 10.9 % (1.7-9.3); MPV 10.2 FL (7.4-10.4); PLT 314 X1000 (130-400)
--- NOTE | 2016-08-18 08:08 | PROGRESS NOTE ---
DATE: 08/18/2016 SUBJECTIVE: Ms. Carbajal is still complaining of pain in the right leg where she had ulcer. The patient does have some rash around the ulcer, also some rash on her left leg with itching. Patient is very vague and a poor historian. No high-grade fever or chills. No unusual cough or expectoration. The patient does have dementia, at times confusion. PHYSICAL EXAMINATION: Vital Signs: Her vital signs noted. Patient is afebrile. Neck: Supple. No JVD. Lungs: Bilateral good air entry present. CVS: S1 and S2 heard. Abdomen: Soft. No distention. Bowel sounds present. SHOT POLISHER AND INSPECTOR: Alert, awake. Able to move all 4 limbs. CONSIDERATIONS: 1. Patient does have ulcer on the right calf, some maculopapular rash on the right leg and also on the left leg. The patient is on intravenous Maxipime and Diflucan. I am going to check liver function tests today, also CBC. Her C-reactive protein was normal. I am going to try Kenalog cream locally. I will discuss with surgeon whether biopsy of the ulcer will help to rule out underlying pathology. Continue rest of the treatment. We will consider physical therapy. We will discuss with surgeon and infectious disease specialist about her treatment plan. Then we will make plan for discharge. 2. Her other problems include dementia, history of colon cancer, paroxysmal atrial fibrillation, osteoarthritis.
[2016-08-18] MEDS: KENALOG 0.1% CREAM TOP SCH ×2 (09:49→21:30)
[2016-08-18] MEDS: NS 1,000 ML IV SCH ×2 (09:50→21:31)
[2016-08-18] MEDS: CALTRATE 600 PO SCH ×2 (09:50→21:30)
[2016-08-18] MEDS: VITAMIN D PO SCH ×2 (09:50→21:29)
[2016-08-18] MEDS: MAXIPIME 1 GM/NS 50 ML IV SCH ×3 (09:50→23:56)
[2016-08-18] MEDS: ANUSOL-HC CREAM PR SCH ×2 (09:50→21:30)
[2016-08-18] MEDS: PROTONIX IV SCH (11:38)
--- NOTE | 2016-08-18 14:25 | PROGRESS NOTE ---
DATE: 08/18/2016 PRESENT ILLNESS: The patient has a right leg cellulitis. The main wound on the leg is posteriorly, it has beefy red tissue. The other erythema that the patient had on her leg has faded away. Patient complains of sore lips. MEDICATIONS: The patient is receiving cefepime, this is the 4th day of treatment with the antibiotic. PHYSICAL EXAMINATION: Vital Signs: Temperature is 97.7 degrees, pulse 71, respirations 14, blood pressure 127/52. General: This is a somewhat ill-appearing, 80-year-old female. She is in no acute distress. Lungs: Clear to auscultation. Cardiovascular: Regular heart rate. Abdomen: Soft and nontender. Extremities: The patient's right leg as mentioned above is not as erythematous. It does have a posterior ulcerated area with beefy red tissue. Actually the beefy red tissue has grown quite a bit so that it is not even an ulcer anymore. ENT- lips erythematous with small ulcers. LAB AND X-RAY: The patient's CBC shows a white count of 5240, hemoglobin 10.4, and platelet count 314,000. The patient's creatinine is 0.6. The GFR is greater than 60. The patient's wound culture remains negative. The patient's creatinine is 0.6. GFR is greater than 60. ASSESSMENT AND PLAN: I discussed with Dr. Sanchez fut wound care. Will try Unna wraps. For the lips will try antiviral cream. Switch to PO ceftin when sent home. COMORBIDITY: She is very elderly. She also has a history of chronic leg edema. I wonder if possibly an Unna wrap or Unna boot would be appropriate. Again I will discuss this with Dr. Sanchez, and also discuss it with Dr. Pollard. [facility]
[2016-08-18] MEDS ORDERED: ZOVIRAX CREAM TOP SCH (15:00)
[2016-08-18] MEDS: DIFLUCAN PO SCH (15:56)
[2016-08-18] MEDS: ZOVIRAX OINTMENT TOP SCH ×3 (15:57→21:30)
[2016-08-18] MEDS: CULTURELLE PO SCH (21:30)
--- NOTE | 2016-08-19 07:38 | PROGRESS NOTE ---
DATE: 08/19/2016 SUBJECTIVE: Ms. Carbajal is doing better. The patient had ulcer on the back of her right leg calf. The patient is still complaining of pain. No high-grade fever or chills. The patient is on IV antibiotics. I did talk to Dr. Simpson and Dr. Sanchez her surgeon and ID specialist. The surgeon is happy with her progress and according to him we can discharge the patient home with local wound care. The patient is kind of reluctant to go home. The patient does have dementia. OBJECTIVE: Vital signs noted. Neck is supple. No JVD. Lungs with bibasilar crepitations. Heart regular. Abdomen is soft, globular. Bowel sounds present. Nontender. Her rash on the leg looking better. ALUMINUM CAN COLLECTOR: Alert, awake and able to move all 4 limbs. LABORATORY: Labs done yesterday looking better. C-reactive protein was 2.35. IMPRESSION AND PLAN: Overall patient is doing well. We will continue current treatment plan discharging her home soon. Discharge plan discussed with ID specialist and surgeon. They are in agreement.
[2016-08-19] MEDS: MAXIPIME 1 GM/NS 50 ML IV SCH ×2 (09:46→15:16)
[2016-08-19] MEDS: CALTRATE 600 PO SCH ×2 (09:50→21:13)
[2016-08-19] MEDS: KENALOG 0.1% CREAM TOP SCH ×2 (09:50→21:15)
[2016-08-19] MEDS: ICAR-C PO SCH ×2 (09:51→21:13)
[2016-08-19] MEDS: METAMUCIL PO SCH ×2 (09:51)
[2016-08-19] MEDS: ZOVIRAX OINTMENT TOP SCH ×5 (09:51→21:14)
[2016-08-19] MEDS: CENTRUM SILVER PO SCH (09:51)
[2016-08-19] MEDS: ANUSOL-HC CREAM PR SCH ×2 (09:51→21:13)
[2016-08-19] MEDS: VITAMIN D PO SCH ×2 (09:51→21:13)
[2016-08-19] MEDS: CULTURELLE PO SCH ×2 (09:51→21:13)
--- NOTE | 2016-08-19 09:54 | PROGRESS NOTE ---
DATE: 08/19/2016 SUBJECTIVE: She feels better. She is in good spirits. Her right leg continues to be painful but it's redness is much improved. OBJECTIVE: No fevers. No tachycardia. Temperature is 97.4 degrees, pulse 60, blood pressure 130/53. General: She is alert in no acute distress. HEENT: There is no scleral icterus. Cardiovascular: Normal rate. Regular rhythm. Her right leg has a clean dressing in place. I took this down. There is some chronic thickening of the skin in her calf but no but the cellulitis picture that she has had previous is much improved. Her wound on the posterior lateral calf is approximately half the size at what it has been previously and is healing with beefy granulation tissue in the bed. Extremities are otherwise well perfused I reviewed her labs. She does not have leukocytosis. White count 5, hematocrit 33. Platelets are normal. Creatinine is normal at 0.6. ASSESSMENT AND PLAN: This is an 80-year-old female with a chronic wound on her right posterior calf. This is healing significantly than when I first saw her approximately a month ago. The cellulitis is also much improved. Really, mostly chronic appearing skin changes to her right calf of unclear etiology. I see no edema here. I would recommend continue the Santyl ointment topically daily. I discussed with the patient. I have had long discussion with him as an outpatient regarding this as well. Otherwise, I do not see, and Dr. Simpson has agreed that there is not a lot of indication for more antibiotics that she has been treated adequately with IV antibiotics during her admission here. Otherwise she can return to [place] in 2 weeks for me to monitor the wound as an outpatient. I think it is going to heal. I do not see a lot of value in Unna boot therapy. She has no edema. She is very cachectic and a very thin lady. I do not know that this would be of much benefit, but, I think local wound care with enzymatic debridement is beneficial. I appreciate Dr. Simpson and Dr. Luna help in managing this lady. [facility]
[2016-08-19] MEDS: PROTONIX IV SCH (12:05)
[2016-08-19] MEDS: TYLENOL PO PRN (15:16)
[2016-08-19] MEDS: DIFLUCAN PO SCH (15:16)
--- NOTE | 2016-08-19 15:28 | PROGRESS NOTE ---
DATE: 08/19/2016 REFERRING PHYSICIAN: Ronnie Pollard MD PRIMARY CARE DOCTOR: Courtney Sanchez MD SUBJECTIVE: Patient currently resting in bed. She is getting ready for discharge soon. She was admitted for cellulitis. She also complained of diarrhea which has been worked as an outpatient. She underwent EGD and colonoscopy 05/22/2016 which showed evidence of a gastric ulcer, gastritis, reflux disease and evidence of right colectomy and ileocolonic anastomosis on the right side with normal-appearing terminal ileum and normal colon otherwise. OBJECTIVE: Vitals: Temperature of 97.8 degrees, pulse of 72, respiratory 16, blood pressure 111/72, saturating 98% on room air. General Appearance: moderately built, moderately nourished, lying in bed, in no acute distress. HEENT: Pale conjunctivae. No icterus. Neck: Supple. Abdomen: Soft, nontender, nondistended. Bowel sounds heard. No guarding. Extremities: No cyanosis, clubbing. She has redness of the lower extremities and the left leg is in a dressing for ulcerative colitis which is being treated by the Surgical Team. Neurologic : She is alert, awake, oriented. LABORATORY: Hemoglobin and hematocrit is 10.4 and 33.7, white count of 5.24, platelet count of 314,000, MCV of 86.4. Sodium is 142, potassium 4.3, chloride 105, bicarb 22, anion gap 9, BUN 21, creatinine 0.6, glucose of 83. Calcium is 8.9. Total bilirubin is 0.30, AST 16 , ALT 9, alkaline phos 90. Total protein 5.6, albumin of 2.4. Stool lactoferrin is negative. Stool C. difficile toxin is negative. [facility] IBD panel was also negative. Clostridium difficile antigen is negative. IMPRESSION AND PLAN: 1. Cellulitis with chronic wound on the right posterior calf status post intravenous antibiotics. Being followed by Surgical Team- Dr. Dc Sanchez and Dr. Annabelle Simpson. 2. Gastric ulcer based on esophagogastroduodenoscopy and colonoscopy in . We will continue on proton pump inhibitor once daily for 3 months and then can transition Zantac 150 mg at bedtime as needed. 3. Diarrhea, which is now resolved. Her colonoscopy was negative. Terminal ileum was normal on colonoscopy. Stool studies are negative and lactoferrin and [facility] inflammatory bowel disease panel is negative. In this regard, we will keep her on Metamucil once daily which has helped her in the past with stool consistency. 4. Mild wall thickening and retained fluid in much of the ileum seen on imaging on 06/06/2017. It could be secondary to a viral infection or antibiotic-associated diarrhea , which is now resolved. 5. Extensive atherosclerosis noted along the abdominal aorta and iliac arteries. To be managed per the Primary Team and surgically. 6. Patient was also put on Iron C and multivitamin for anemia. The above plan of care was discussed with the patient and all questions answered. [facility]
--- NOTE | 2016-08-19 16:33 | PROGRESS NOTE ---
DATE: 08/19/2016 PRESENT ILLNESS: The patient on her right leg has some erythematous dermatitis which appears to be getting better. On the posterior aspect of her leg there is a wound. It has beefy red tissue over it. Get overall is getting smaller in size. The wound is not surrounded by more intense erythema than the rest of the right leg. MEDICATIONS: The patient is getting local care with Unna wrap and she also has been on cefepime intravenously. PHYSICAL EXAMINATION: Vital Signs: Temperature is 97.8 degrees, pulse 73, respirations 16, blood pressure 111/72. General: This is an ill-appearing, elderly female. She is in no acute distress. Lungs: Clear to auscultation. Cardiovascular: Regular heart rate. Abdomen: Soft and nontender. Extremities: The right leg erythema has subsided somewhat. On the posterior aspect of the right leg there is a wound that has beefy red tissue without surrounding marked red tissue. LAB AND X-RAY: No new lab or x-ray for today. ASSESSMENT AND PLAN: I have stopped the patient's antibiotics. The wound does not look infected and I think she does not need any more. Right now, she is getting an Unna wrap to the leg but the final information for the patient's local treatment will be done by Dr. Sanchez. The patient will be going home soon and Dr. Sacnhez will decide what kind of wound care he wants. The patient yesterday had some, what were like tiny blisters on her lips and her lips were sore. I started acyclovir ointment and it seems to have helped quite a bit. When the patient goes home I do not think she will need antibiotic and I also think she will not need any more of the acyclovir ointment. I am available to see the patient on a p.r.n. basis. Follow up will be with Dr. Sanchez, who will also direct the local care to the wound. I am available to see the patient on a p.r.n. basis. COMORBIDITY: Patient is elderly. [facility]
--- NOTE | 2016-08-20 06:36 | DISCHARGE SUMMARY ---
ADMISSION DATE: 08/05/2016 DISCHARGE DATE: FINAL DISCHARGE DIAGNOSES: 1. Nonhealing ulcer on the right calf with infection and cellulitis. 2. Enteritis, gastritis and reflux disease. 3. Alzheimer's type dementia. 4. Paroxysmal atrial fibrillation. 5. Osteoarthritis. HISTORY OF PRESENT ILLNESS: Ms. Carbajal is an 80-year-old, white female patient who was under the care of a surgeon and was going to the wound clinic. Patient had a nonhealing ulcer on the right leg not responding to outpatient treatment. Initially patient was admitted to [facility] from the wound clinic under the care of a surgeon for IV antibiotics and wound care. The patient had some abdominal pain. She had a CT scan of the abdomen and pelvis done, which did reveal nonspecific enteritis. They did not have GI coverage and the patient was sent to [facility] for further workup. The patient was admitted to my service. The surgeon continued to follow the patient. A GI consult was obtained. She was checked for inflammatory bowel disease and it was negative. The patient's clinical condition gradually improved. Her ulcer is looking better. The patient had some rash around the ulcer on the right leg and also on the left leg. I started her on Kenalog cream for the rash and she seems to be responding to it well. I had a discussion with the ID specialist and surgeon and they both are in agreement. The patient received maximum benefit of hospitalization. No need for further antibiotics. We are going to discharge the patient home on Santyl cream for wound care. I will discharge patient home today. Discharge plan was discussed with the family who are in agreement. PHYSICAL EXAMINATION: Vital signs: Noted. Neck: Supple. No JVD. Lungs: Bilateral good air entry present. CV: S1 and S2 heard. Abdomen: Soft. No distention. Bowel sounds present. No tenderness in the right lower quadrant. Extremities: No cyanosis or clubbing. Her ulcer is looking better. No evidence of active infection. The rash is also improving. DISTRICT SCOUT EXECUTIVE: Alert and awake. Able to move all 4 limbs. Patient does have dementia. The patient seems to be eager to go home today. LABORATORY AND DIAGNOSTIC STUDIES: CT scan did reveal wall thickening along the ileum, suspicious for ileitis or antritis, distended gallbladder, similar to prior, no calcified gallstone or pericholecystic inflammation, nonobstructing stone in the right kidney, extensive atherosclerotic calcification in the abdominal aorta. Her lab data from August 18: Hemoglobin 10.4, hematocrit 33.7, WBC count 5.27, platelet count 314,000. Electrolytes were fairly benign. C- reactive protein was 2.35. The patient had lactoferrin ferritin and it was negative. DISPOSITION: Overall, the patient received maximum benefit of hospitalization. We will discharge patient home with fall precautions and local wound care. I am going to offer family home health. Follow up with me in 1 week. Follow up with surgeon as scheduled. In case of more distress, call us back or go to emergency room.
[2016-08-20 08:02] VITALS: BP 136/58
[2016-08-20] MEDS ORDERED: SANTYL OINT TOP SCH (09:00)
[2016-08-20] MEDS: ANUSOL-HC CREAM PR SCH (09:41)
[2016-08-20] MEDS: ICAR-C PO SCH (09:41)
[2016-08-20] MEDS: ZOVIRAX OINTMENT TOP SCH (09:41)
[2016-08-20] MEDS: CULTURELLE PO SCH (09:41)
[2016-08-20] MEDS: CENTRUM SILVER PO SCH (09:41)
[2016-08-20] MEDS: KENALOG 0.1% CREAM TOP SCH (09:42)
[2016-08-20] MEDS: CALTRATE 600 PO SCH (09:42)
[2016-08-20] MEDS: METAMUCIL PO SCH ×2 (09:42)
[2016-08-20] MEDS: VITAMIN D PO SCH (09:42)
--- NOTE | 2016-08-20 12:14 | PROGRESS NOTE ---
DATE: 08/20/2016 SUBJECTIVE: The patient is resting in bed. She is getting ready to be discharged. She denies any nausea or vomiting. She had 1 bowel movement today, which she described as soft. She denied any blood in the stools. OBJECTIVE: Vital signs: Temperature of 97.6 degrees, pulse rate of 73, respiratory rate 20, blood pressure 136/58, saturating 100% on room air. General Appearance: Moderately built, moderately nourished, lying in bed in no acute distress. HEENT: Mild pallor. No icterus. Neck: Supple. Abdomen: Soft, nontender, nondistended. Bowel sounds present. No guarding. Extremities: No cyanosis or clubbing. She has redness over the lower extremities. Neurologic: She is alert, awake, oriented. LABORATORIES: Reviewed from 08/18/2016. IMPRESSIONS AND PLAN: 1. Nonhealing ulcer on the right calf with infection and cellulitis. The patient is managed by the primary team, Dr. Amandeep Simpson and Dr. Dc Sanchez. 2. History of gastric ulcer disease seen on EGD and colonoscopy on 05/22/2016. She will need to be on PPIs once daily for 3 months and then she will transition to Zantac once daily at bedtime. 3. Reflux disease. Follow gastroesophageal lifestyle changes. 4. Normal terminal ileum and colon noted on the colonoscopy on 06/09/2016, and her recent enteritis-like appearance and terminal ileal inflammation seen on imaging could be viral in origin. Her stool studies and IBD panel are negative. We will keep her on Metamucil once daily and keep her on Culturelle b.i.d. or yogurt twice daily. 5. The patient will follow with us in clinic as needed. [facility]
== END 2016-08-20 12:26 | disposition home or self-care (01) | DRG 603 ==
LOC: INTOOBSV 13:16 → P.DIRADM 13:16 → P.MEDSURG 13:28 → OBSVTOIN 08-05 13:15 → 3N 08-07 15:25
PROVIDERS: ADMIT Internal Medicine; ATTEND Internal Medicine
DX: L03.115 Cellulitis of right lower limb (principal); R64 Cachexia; L97.219 Non-pressure chronic ulcer of right calf with unspecified severity; G30.9 Alzheimer's disease, unspecified; F02.80 Dementia in other diseases classified elsewhere, unspecified severity, without behavioral disturbance, psychotic disturbance, mood disturbance, and anxiety; Z68.1 Body mass index [BMI] 19.9 or less, adult; I48.0 Paroxysmal atrial fibrillation; J44.9 Chronic obstructive pulmonary disease, unspecified; D64.9 Anemia, unspecified; A08.4 Viral intestinal infection, unspecified; I70.0 Atherosclerosis of aorta; I70.8 Atherosclerosis of other arteries; R21 Rash and other nonspecific skin eruption; K21.9 Gastro-esophageal reflux disease without esophagitis; K29.70 Gastritis, unspecified, without bleeding; M19.90 Unspecified osteoarthritis, unspecified site; I87.8 Other specified disorders of veins; Z79.899 Other long term (current) drug therapy; Z79.82 Long term (current) use of aspirin; Z85.038 Personal history of other malignant neoplasm of large intestine; Z87.891 Personal history of nicotine dependence; Z87.11 Personal history of peptic ulcer disease; Z90.49 Acquired absence of other specified parts of digestive tract; Z80.0 Family history of malignant neoplasm of digestive organs; Z82.49 Family history of ischemic heart disease and other diseases of the circulatory system
CPT/HCPCS: 36415; 74000; 74177; 80048; 80053; 80202; 81001; 82378; 83630; 83735; 84443; 85025; 85027; 86140; 86255; 86671; 87045; 87046; 87070; 87324; 87449; 89055; 93971; C9113; G0378; J0131; J0692; J0696; J2185; J2405; J2550; J2765; J3370; J7030; J7050; Q9967; 97116-GP; S0077; S0164

== ENCOUNTER 2016-11-25 12:10 | Inpatient (IN) ==
[2016-11-25 14:26] LABS: MANUAL DIFF NEEDED? NO
[2016-11-25 14:29] LABS: BASO% 0.5 % (0.0-0.8); EOS% 2.6 % (0.0-10.0); HEMATOCRIT 36.7 % (37.0-47.0); HEMOGLOBIN 11.4 g/dL (12.0-16.0); LYMPH# 1.44 X1000 (1.2-3.4); LYMPH% 18.8 % (20.5-51.1); MCH 27.7 PG (27-31); MCHC 31.1 g/dL (33-37); MCV 89.1 FL (81-99); MONO# 0.44 X1000 (0.11-0.59); MONO% 5.7 % (1.7-9.3); MPV 9.4 FL (7.4-10.4); NEUT% 72.4 % (42.2-75.2); PLT 408 X1000 (130-400); RBC 4.12 XMIL (4.2-5.4)
[2016-11-25 14:46] LABS: AGAP 12; ALBUMIN 3.8 g/dL (3.5-5.0); ALKALINE PHOSPHATASE 123 U/L (32-104); BUN 17 mg/dL (8-22); CALCIUM 10.3 mg/dL (8.8-10.2); CHLORIDE 103 mmol/L (98-107); COSMO 281; GOT 20 U/L (10-30); GPT 12 U/L (10-36); POTASSIUM 4.3 mmol/L (3.5-5.1); PREALBUMIN 21.4 mg/dL (20-40); SODIUM 140 mmol/L (136-145); TCO2 25 mmol/L (25-35); TOTAL BILIRUBIN 0.31 mg/dL (0.20-1.00); TOTAL PROTEIN 6.5 g/dL (6.3-8.3)
[2016-11-25] MEDS: 1/2 NS 1,000 ML IV SCH (15:49)
[2016-11-25] MEDS ORDERED: VANCOMYCIN 1,350 MG in NS 250 ML IV ONE (16:00)
[2016-11-25] MEDS ORDERED: VANCOMYCIN IV PER PHARMACY MISC SCH (17:30)
[2016-11-25] MEDS ORDERED: BLISTEX MEDICATED BERRY LIP BALM TOP PRN (17:44)
[2016-11-25] MEDS: ULTRAM PO PRN (18:11)
[2016-11-25] MEDS: TYLENOL PO PRN ×2 (18:25→22:54)
[2016-11-25] MEDS: LOVENOX SUBQ SCH (18:56)
--- NOTE | 2016-11-25 18:56 | HISTORY AND PHYSICAL ---
CHIEF COMPLAINT: Cellulitis right leg and nonhealing ulcer. HISTORY OF PRESENT ILLNESS: Ms. Carbajal is an 81-year-old, white female patient, went to the wound clinic for evaluation. Evaluated by surgeon. The patient had nonhealing ulcer on the right leg posteriorly. The patient also had surrounding redness. Some chills. Evaluated by surgeon. The patient was not responding to outpatient treatment and surgeon decided to admit patient for further care. The patient does have some pain in her right leg. No high-grade fever. The patient complaining of low back pain mild to moderate. More pain with movement. Patient x-ray did reveal degenerative disk disease. The patient was supposed to see her back doctor, but she did not go. She does have urinary frequency, urgency. At times, urge urinary incontinence. No gross hematuria. No typical chest pain, palpitations, orthopnea, PND. Denied chronic cough, unusual expectoration. No runny nose, stuffy nose, sinus drainage. The patient does have problem with allergic rhinitis for which patient is on Claritin. No major weight loss or weight gain. No heat or cold intolerance. The patient does have dementia, history part was limited. ALLERGIES: Sulfa and aspirin, but patient is taking aspirin without any problem. HOME MEDICATIONS: Includes Fentanyl ointment, Tylenol. Aspirin, vitamin D, calcium. Aricept, multivitamin, Prilosec, Ultram. PAST MEDICAL HISTORY: Significant for gastritis, paroxysmal atrial fibrillation. Dementia, osteoarthritis, nonhealing ulcer on the right leg and non obstructing kidney stone. Low back pain. Rhinitis. PERSONAL HISTORY: , nonsmoker. Denied alcohol or substance abuse. Fairly independent in activities of daily living. REVIEW OF SYSTEMS: As per HPI. FAMILY HISTORY: Noncontributory. PHYSICAL EXAMINATION: GENERAL: Elderly, white female patient, in mild distress. VITAL SIGNS: On admission noted. HEENT: Head atraumatic, normocephalic. Muse conjunctivae. Anicteric sclerae. Extraocular muscle movement normal. Fundus cannot be penetrated. Good oral hygiene. No tonsillopharyngeal congestion or exudate. Ears and nose benign. NECK: Supple. No JVD, thyromegaly or lymphadenopathy. CHEST: Bilateral good air entry present. Few basal crepitations. No rales. CARDIOVASCULAR: S1 and S2 heard. No gallop or thrill. ABDOMEN: Soft, scaphoid. Bowel sounds present. No organomegaly or mass. EXTREMITIES: No cyanosis, clubbing. No acute DVT. Minimal swelling right leg. Nonhealing ulcer on the right calf. The patient does have surrounding cellulitis with redness and warmth on the right leg. No acute vascular compromise. Crepitation both the knee joints. LABORER WHARF: Alert, awake, able to move all 4 limbs. LAB DATA: Done on admission revealed hemoglobin 11.4, hematocrit 36.7, WBC count 7.67, platelet count 408. Calcium 10.3. Alkaline phosphatase 123. CONSIDERATION/ASSESSMENT: 1. Nonhealing ulcer on the right leg. 2. Cellulitis of the right leg. 3. Paroxysmal atrial fibrillation. 4. Dementia. 5. Anemia most likely of chronic disease. 6. Gastritis and reflux disease. 7. Low back pain due to degenerative disk disease. PLAN: Admit patient. IV antibiotics. Wound care nurse evaluation. Resume home medicine. Close observation. Overall plan discussed at length with the patient and family. They are in agreement. cc: Boy Conde MD
[2016-11-25 19:21] LABS: URINE MICRO REVIEW NEEDED? NO; URINE SOURCE CLEAN CATCH
[2016-11-25 19:27] LABS: BILIRUBIN URINE NEGATIVE (NEGATIVE); BLOOD URINE NEGATIVE (NEGATIVE); COLOR YELLOW; GLUCOSE URINE NEGATIVE (NEGATIVE); LEUKOCYTES URINE LARGE (NEGATIVE); NITRITE URINE NEGATIVE (NEGATIVE); PH URINE 6.5; PROTEIN URINE NEGATIVE (NEGATIVE); SP GRAVITY URINE 1.006; TURBIDITY URINE CLEAR (CLEAR); UROBILINOGEN URINE NORMAL (NORMAL)
[2016-11-25 19:28] LABS: UR EPITHELIAL CELLS <10 /HPF (<10); URINE BACTERIA NEGATIVE /HPF; URINE RBC <10 /HPF (<10)
[2016-11-25] MEDS: VITAMIN D PO SCH (22:55)
[2016-11-25] MEDS: CULTURELLE PO SCH (22:55)
[2016-11-25] MEDS: CALTRATE 600 PO SCH (22:55)
[2016-11-26] MEDS: PRILOSEC PO SCH ×2 (05:28→06:21)
--- NOTE | 2016-11-26 07:23 | PROGRESS NOTE ---
DATE: 11/26/2016 SUBJECTIVE: Ms. Carbjaal is doing better. The patient still has burning pain in the right leg. She had nonhealing ulcer and cellulitis. The patient is on IV vancomycin. No high-grade fever or chills. No typical chest pain or palpitations. Denied any diarrhea. PHYSICAL EXAMINATION: Vital Signs: Her vital signs noted. Neck: Supple. No JVD. Lungs: Clear. Heart: S1 and S2 heard. Abdomen: Soft. No distention. Bowel sounds present. Extremities: Patient does have nonhealing ulcer with cellulitis of the right leg. 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 Able to move all 4 limbs. CONSIDERATION: 1. Cellulitis, nonhealing ulcer on right leg. 2. Urinary tract infection. 3. The patient does have dementia. 4. Chronic low back pain. PLAN: I am going to get urine culture. Close observation. Fall precaution. Lab data done yesterday noted. Overall plan discussed with the patient. She is in agreement. cc: Boy Conde MD
[2016-11-26] MEDS: ARICEPT PO SCH (10:08)
[2016-11-26] MEDS: CULTURELLE PO SCH ×2 (10:08→20:48)
[2016-11-26] MEDS: VITAMIN D PO SCH ×2 (10:08→20:48)
[2016-11-26] MEDS: CALTRATE 600 PO SCH ×2 (10:08→20:48)
[2016-11-26] MEDS: CENTRUM SILVER PO SCH (10:08)
[2016-11-26] MEDS: ASPIRIN PO SCH (10:08)
[2016-11-26] MEDS: 1/2 NS 1,000 ML IV SCH (12:50)
[2016-11-26] MEDS: TYLENOL PO PRN (17:43)
[2016-11-26] MEDS: LOVENOX SUBQ SCH (18:43)
[2016-11-27] MEDS: VANCOMYCIN 1,150 MG in NS 250 ML IV SCH (03:17)
[2016-11-27] MEDS: ULTRAM PO PRN ×2 (03:17→20:15)
[2016-11-27] MEDS: 1/2 NS 1,000 ML IV SCH ×2 (06:17→08:15)
[2016-11-27] MEDS: PRILOSEC PO SCH (06:17)
--- NOTE | 2016-11-27 07:25 | PROGRESS NOTE ---
DATE: 11/27/2016 SUBJECTIVE: Ms. Carbajal is doing some better. Complaining of burning pain in the leg. No high- grade fever, chills. The patient is on IV antibiotics. We are doing wound care. No unusual cough or expectoration. OBJECTIVE: Vital Signs: Her vital signs reviewed. Lungs: Bibasilar crepitations. Heart: S1 and S2 heard. Abdomen: Soft, globular. Bowel sounds present. GARMENT EXAMINER: Alert, awake. Able to move all 4 limbs. CONSIDERATION: 1. Nonhealing ulcer with cellulitis, right leg. 2. History suggestive of neuropathy pain. I am going to start her on small dose of Neurontin. 3. Alzheimer's type dementia. 4. Urinalysis suggestive of urinary tract infection. Urine culture result is pending. PLAN: Overall patient is doing better. I am going to check appropriate labs. Continue current treatment. Close observation. Overall plan discussed with the patient. She is in agreement. cc: Boy Conde MD
[2016-11-27 08:25] LABS: MANUAL DIFF NEEDED? NO
[2016-11-27 08:32] LABS: BASO% 0.9 % (0.0-0.8); EOS# 0.46 X1000 (0.0-0.7); EOS% 8.1 % (0.0-10.0); HEMATOCRIT 36.4 % (37.0-47.0); HEMOGLOBIN 11.3 g/dL (12.0-16.0); LYMPH# 1.52 X1000 (1.2-3.4); LYMPH% 26.8 % (20.5-51.1); MCH 27.6 PG (27-31); MONO# 0.49 X1000 (0.11-0.59); MONO% 8.6 % (1.7-9.3); MPV 9.3 FL (7.4-10.4); NEUT% 55.6 % (42.2-75.2); PLT 373 X1000 (130-400); RBC 4.09 XMIL (4.2-5.4)
[2016-11-27 08:47] LABS: AGAP 9; ALBUMIN 3.6 g/dL (3.5-5.0); ALKALINE PHOSPHATASE 110 U/L (32-104); BUN 18 mg/dL (8-22); CALCIUM 9.8 mg/dL (8.8-10.2); CHLORIDE 101 mmol/L (98-107); COSMO 283; GOT 16 U/L (10-30); GPT 10 U/L (10-36); POTASSIUM 4.1 mmol/L (3.5-5.1); SODIUM 141 mmol/L (136-145); TCO2 31 mmol/L (25-35); TOTAL BILIRUBIN 0.19 mg/dL (0.20-1.00)
[2016-11-27] MEDS: VITAMIN D PO SCH ×2 (11:37→20:15)
[2016-11-27] MEDS: CALTRATE 600 PO SCH ×2 (11:37→20:15)
[2016-11-27] MEDS: CENTRUM SILVER PO SCH (11:37)
[2016-11-27] MEDS: ARICEPT PO SCH (11:38)
[2016-11-27] MEDS: CULTURELLE PO SCH ×2 (11:38→22:50)
[2016-11-27] MEDS: ASPIRIN PO SCH (11:38)
--- NOTE | 2016-11-27 17:34 | PROGRESS NOTE ---
DATE: 11/27/2016 SUBJECTIVE: Feels better. Asking when she can go home. No fevers. No tachycardia. Erythema in the right leg is much improved. No edema. White count 5, hematocrit 36, creatinine 0.7, glucose is 87. ASSESSMENT AND PLAN: 81-year-old female with a chronic wound to the right lower extremity and recurrent cellulitis. She had normal peripheral perfusion, unclear of the etiology of this ulcer. We had it healed at 1 point but she presents back now with new wound and cellulitis. They have been applying Santyl ointment all over her calf and it is possible this is some skin irritation related to this but she seems to rapidly improve with antibiotics and suspect this is kind of a cellulitis related to her wound. We will continue antibiotics and follow along. cc: MD Boy Mccullough MD
[2016-11-27] MEDS: LOVENOX SUBQ SCH (20:15)
[2016-11-27] MEDS: NEURONTIN PO SCH (20:15)
[2016-11-27] MEDS: SANTYL OINT TOP SCH (20:16)
[2016-11-28] MEDS: 1/2 NS 1,000 ML IV SCH ×2 (02:05→23:24)
[2016-11-28] MEDS: PRILOSEC PO SCH (05:33)
--- NOTE | 2016-11-28 06:30 | PROGRESS NOTE ---
DATE: 11/28/2016 SUBJECTIVE: Patient says she is doing better. She says her redness is improved. Overall thinks she is doing better. OBJECTIVE: Vital Signs: Patient is currently afebrile. Her vital signs are stable. General: No acute distress. Cardiovascular: Regular rate and rhythm. Lungs: Grossly clear. Abdomen: Soft, nontender, nondistended. Extremities: Erythema does not extend past the dressings. The dressings are intact and in place. ASSESSMENT AND PLAN: An 81-year-old female with chronic wound to left lower extremity with recurrent cellulitis. Recurrent cellulitis. At this time, we will continue local wound care. She has made improvements with her erythema. Suspect that she could potentially be transitioned over to antibiotics at home, but will defer to the patient's primary care physician. Overall, her clinical status is improving. cc: MD Boy Shaikh MD
--- NOTE | 2016-11-28 09:00 | Diag Imaging Result Doc PS360 ---
EXAM: CHEST-2 VIEWS HISTORY: hypoxia TECHNIQUE: COMPARISON: 04/28/2016 FINDINGS: The lungs are hyperexpanded. Mild increased AP diameter to the chest. Mild scoliosis. The heart is not enlarged. The vessels are not distended. There are no infiltrates. No pleural effusions. Summation artifact versus possible nodule in the left apex. IMPRESSION: Emphysema. Electronically signed by Pj Verdugo 11/28/2016 8:58 AM
[2016-11-28] MEDS: CULTURELLE PO SCH ×2 (10:40→23:22)
[2016-11-28] MEDS: CENTRUM SILVER PO SCH (10:40)
[2016-11-28] MEDS: ASPIRIN PO SCH (10:40)
[2016-11-28] MEDS: ARICEPT PO SCH (10:40)
[2016-11-28] MEDS: VITAMIN D PO SCH ×2 (10:40→23:21)
[2016-11-28] MEDS: CALTRATE 600 PO SCH ×2 (10:40→23:22)
--- NOTE | 2016-11-28 13:04 | PROGRESS NOTE ---
DATE: 11/28/2016 SUBJECTIVE: Ms. Carbajal has a chronic wound with cellulitis on the left leg. She has a chronic wound. She is on IV vancomycin and we will continue on IV vancomycin on her. She is being followed by Dr. Beltran. Overall condition is otherwise unchanged. Her electrolyte status, BUN, and creatinine are normal. -7 cc: MD Boy Henderson MD
[2016-11-28] MEDS: TYLENOL PO PRN (14:46)
[2016-11-28] MEDS: SANTYL OINT TOP SCH (14:47)
[2016-11-28] MEDS: VANCOMYCIN 1,150 MG in NS 250 ML IV SCH (17:07)
[2016-11-28] MEDS: LOVENOX SUBQ SCH (17:16)
[2016-11-28] MEDS: ULTRAM PO PRN (20:59)
[2016-11-28] MEDS: NEURONTIN PO SCH (23:22)
--- NOTE | 2016-11-29 06:39 | PROGRESS NOTE ---
DATE: 11/29/2016 SUBJECTIVE: Patient doing better. She says the redness is improved. No major issues. OBJECTIVE: Vital Signs: Patient is currently afebrile. Her vital signs are stable. General Examination: No acute distress. Cardiovascular: Regular rate and rhythm. Lungs: Grossly clear. Abdomen: Soft, nontender, nondistended. Extremities: Erythema noted but does not extend past the dressing. The wound appears to be healing well. ASSESSMENT/PLAN: An 81-year-old, female with a chronic wound to the left lower extremity with recurrent cellulitis. Recurrent cellulitis. At this time, continue local wound care. Would continue intravenous antibiotics for right now. Her overall clinical status is improving. cc: MD Boy Shaikh MD
[2016-11-29] MEDS: PRILOSEC PO SCH (08:27)
[2016-11-29] MEDS: CENTRUM SILVER PO SCH (09:14)
[2016-11-29] MEDS: ARICEPT PO SCH (09:14)
[2016-11-29] MEDS: VITAMIN D PO SCH ×2 (09:14→20:51)
[2016-11-29] MEDS: CALTRATE 600 PO SCH ×2 (09:15→20:51)
[2016-11-29] MEDS: CULTURELLE PO SCH ×2 (09:15→20:50)
[2016-11-29] MEDS: ASPIRIN PO SCH (09:15)
[2016-11-29] MEDS: SANTYL OINT TOP SCH (11:41)
[2016-11-29] MEDS: MAXIPIME 1 GM/NS 1 GM/50 ML IVPB IV SCH (11:41)
--- NOTE | 2016-11-29 14:12 | PROGRESS NOTE ---
DATE: 11/29/2016 Her leg is still not improving. I am going to add cefepime probably to the current regimen. She is getting IV vancomycin. -3 cc: MD Boy Henderson MD
[2016-11-29] MEDS: LOVENOX SUBQ SCH (17:48)
[2016-11-29] MEDS: 1/2 NS 1,000 ML IV SCH (18:52)
[2016-11-29] MEDS: TYLENOL PO PRN (20:50)
[2016-11-29] MEDS: NEURONTIN PO SCH (20:50)
[2016-11-29] MEDS: ULTRAM PO PRN (20:50)
[2016-11-30] MEDS: MAXIPIME 1 GM/NS 1 GM/50 ML IVPB IV SCH ×3 (00:10→22:35)
[2016-11-30] MEDS: VANCOMYCIN 1,200 MG in NS 250 ML IV SCH (05:42)
[2016-11-30] MEDS: TYLENOL PO PRN ×2 (05:46→18:22)
[2016-11-30] MEDS: ULTRAM PO PRN (05:46)
[2016-11-30] MEDS: PRILOSEC PO SCH ×2 (06:56→06:57)
[2016-11-30] MEDS: CALTRATE 600 PO SCH ×2 (08:06→22:35)
[2016-11-30] MEDS: CULTURELLE PO SCH ×2 (08:06→22:35)
[2016-11-30] MEDS: ASPIRIN PO SCH (08:06)
[2016-11-30] MEDS: VITAMIN D PO SCH ×2 (08:06→22:35)
[2016-11-30] MEDS: CENTRUM SILVER PO SCH (08:06)
[2016-11-30] MEDS: SANTYL OINT TOP SCH (08:06)
[2016-11-30] MEDS: ARICEPT PO SCH (08:06)
--- NOTE | 2016-11-30 11:16 | PROGRESS NOTE ---
DATE: 11/30/2016 SUBJECTIVE: Ms. Carbajal is doing better. She still had pain in the right leg, nonhealing ulcer. No high-grade fever or chills. She is tolerating Neurontin well. No nausea or vomiting. Oral intake is fair. PHYSICAL EXAMINATION: Vital Signs: Vital signs noted. Lungs: Clear. Heart: Regular. Abdomen: Soft, nontender. Bowel sounds present. Extremities: The patient had a nonhealing ulcer on the right leg with surrounding cellulitis. SUPERVISOR GENERAL: Alert, awake. Able to move all 4 limbs. CONSIDERATION: 1. Nonhealing ulcer with cellulitis, right leg. 2. Peripheral neuropathy. 3. Dementia. PLAN: I am going to continue current treatment. Surgeon following patient with us. I am going to check appropriate labs tomorrow. Continue current treatment. Continue wound care. cc: Boy Conde MD
[2016-11-30] MEDS: KENALOG 0.1% CREAM TOP SCH ×2 (13:49→22:35)
--- NOTE | 2016-11-30 14:17 | PROGRESS NOTE ---
DATE: 11/30/2016 SUBJECTIVE: Feels better, less pain in her leg, but continues to have some. No fevers, no tachycardia. Blood pressure has been okay for her. Right calf with persistent skin thickening. Stable wound, but the degree of erythema is improving. She is on appropriate antibiotics. Dr. Conde is following. Plans to check labs tomorrow. We will continue local wound care and IV antibiotics for cellulitis of the right calf. cc: MD Boy Mccullough MD
[2016-11-30] MEDS: 1/2 NS 1,000 ML IV SCH (15:43)
[2016-11-30] MEDS: LOVENOX SUBQ SCH (17:54)
[2016-11-30] MEDS: NEURONTIN PO SCH (22:35)
[2016-12-01] MEDS: VANCOMYCIN 1,200 MG in NS 250 ML IV SCH (04:17)
[2016-12-01] MEDS: ULTRAM PO PRN ×2 (04:24→11:53)
[2016-12-01] MEDS: PRILOSEC PO SCH (06:18)
--- NOTE | 2016-12-01 06:26 | PROGRESS NOTE ---
DATE: 12/01/2016 SUBJECTIVE: Ms. Carbajal is doing some better today. The patient had significant redness around her ulcer on the right leg. I started her on Kenalog cream. Redness and irritation are much better. No high-grade fever or chills. Neurontin seems to be helping her burning pain. She denied any nausea or vomiting. No high-grade fever or chills. PHYSICAL EXAMINATION: Vital Signs: Her vital signs noted. Neck: Supple. No JVD. Lungs: Bilateral good air entry present. CVS: S1 and S2 heard. Abdomen: Soft, nontender. Bowel sounds present. 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 Able to move all 4 limbs. Extremities: The rash around the right leg ulcer is improving. I am going to check appropriate labs. Continue current treatment. Once it is okay with her surgeon, we will plan discharging patient home. PROBLEM LIST: 1. Nonhealing ulcer of right leg. 2. Neuropathic pain in the leg. 3. Rash around the right leg ulcer, doing better with her current treatment. 4. Low back pain. PLAN: We will continue current treatment. Close observation. cc: Boy Conde MD
[2016-12-01 06:28] LABS: MANUAL DIFF NEEDED? NO
[2016-12-01 06:35] LABS: BASO% 0.9 % (0.0-0.8); EOS# 0.64 X1000 (0.0-0.7); HEMATOCRIT 35.5 % (37.0-47.0); HEMOGLOBIN 11.1 g/dL (12.0-16.0); IMM GRAN# 0.02 X1000 (0.0-0.04); IMM GRAN% 0.4 % (0.0-0.5); LYMPH# 1.18 X1000 (1.2-3.4); LYMPH% 22.1 % (20.5-51.1); MCHC 31.3 g/dL (33-37); MCV 89.4 FL (81-99); MONO# 0.54 X1000 (0.11-0.59); MONO% 10.1 % (1.7-9.3); MPV 9.9 FL (7.4-10.4); NEUT% 54.5 % (42.2-75.2); PLT 357 X1000 (130-400); RBC 3.97 XMIL (4.2-5.4)
[2016-12-01 06:57] LABS: AGAP 9; ALBUMIN 3.7 g/dL (3.5-5.0); ALKALINE PHOSPHATASE 106 U/L (32-104); BUN 18 mg/dL (8-22); CALCIUM 9.5 mg/dL (8.8-10.2); CHLORIDE 101 mmol/L (98-107); COSMO 282; GOT 29 U/L (10-30); GPT 20 U/L (10-36); MAGNESIUM 2.1 mg/dL (1.5-2.7); POTASSIUM 4.6 mmol/L (3.5-5.1); SODIUM 141 mmol/L (136-145); TCO2 31 mmol/L (25-35); TOTAL BILIRUBIN 0.26 mg/dL (0.20-1.00); TOTAL PROTEIN 6.1 g/dL (6.3-8.3)
[2016-12-01] MEDS: CENTRUM SILVER PO SCH (09:26)
[2016-12-01] MEDS: CALTRATE 600 PO SCH ×2 (09:26→22:00)
[2016-12-01] MEDS: CULTURELLE PO SCH ×2 (09:26→22:00)
[2016-12-01] MEDS: VITAMIN D PO SCH ×2 (09:27→22:00)
[2016-12-01] MEDS: ARICEPT PO SCH (09:27)
[2016-12-01] MEDS: ASPIRIN PO SCH (09:27)
[2016-12-01] MEDS: KENALOG 0.1% CREAM TOP SCH ×3 (09:30→17:58)
[2016-12-01] MEDS: SANTYL OINT TOP SCH (09:32)
[2016-12-01] MEDS: MAXIPIME 1 GM/NS 1 GM/50 ML IVPB IV SCH ×2 (11:54→22:49)
[2016-12-01] MEDS: LOVENOX SUBQ SCH (19:41)
[2016-12-01] MEDS: 1/2 NS 1,000 ML IV SCH (21:14)
[2016-12-01] MEDS: NEURONTIN PO SCH (22:00)
[2016-12-02] MEDS: ULTRAM PO PRN (01:05)
[2016-12-02] MEDS: VANCOMYCIN 1,200 MG in NS 250 ML IV SCH (04:34)
[2016-12-02] MEDS: TYLENOL PO PRN (04:48)
[2016-12-02] MEDS: PRILOSEC PO SCH (06:00)
--- NOTE | 2016-12-02 06:39 | PROGRESS NOTE ---
DATE: 12/02/2016 SUBJECTIVE: Ms. Carbajal is doing fair. The patient is getting IV antibiotics for a nonhealing ulcer on the right leg. The patient was complaining of itching and rash on both the forearms. She denied any nausea or vomiting. The patient was complaining of hemorrhoidal pain which she had it on and off at home. The patient does have low back pain with radiculopathy. X-ray did reveal degenerative disk disease. PHYSICAL EXAMINATION: Vital Signs: Her vital signs noted. She is afebrile. Neck: Supple. No JVD. Lungs: Bibasilar crepitations. Heart: S1 and S2 heard. Abdomen: Soft, scaphoid. Bowel sounds present. Skin: Patient does have a rash on both the forearms. Could be due to contact dermatitis. I am going to try Kenalog cream. At her request, I gave her Preparation H to use on p.r.n. basis. LAB DATA: Done yesterday, fairly benign. Electrolytes were fairly benign. CONSIDERATION: 1. Low back pain with radiculopathy. 2. Perirectal pain, possibly hemorrhoidal. 3. Rash on the forearms. 4. Ulcer on the right leg. PLAN: When recommended by surgeon, I am planning to discharge patient home. Continue rest of the treatment. Close observation. I am going to stop IV fluid. I already recommended physical therapy evaluation. The patient is on DVT prophylaxis. cc: Boy Conde MD
[2016-12-02] MEDS ORDERED: PREPARATION H OINT TOP SCH (09:00)
[2016-12-02] MEDS ORDERED: KENALOG 0.1% CREAM TOP SCH (09:00)
[2016-12-02] MEDS: CALTRATE 600 PO SCH (09:02)
[2016-12-02] MEDS: VITAMIN D PO SCH (09:02)
[2016-12-02] MEDS: CENTRUM SILVER PO SCH (09:02)
[2016-12-02] MEDS: ARICEPT PO SCH (09:02)
[2016-12-02] MEDS: CULTURELLE PO SCH (09:02)
[2016-12-02] MEDS: ASPIRIN PO SCH (09:02)
[2016-12-02] MEDS: SANTYL OINT TOP SCH (09:04)
[2016-12-02] MEDS ORDERED: VASELINE TOP SCH (11:18)
[2016-12-02] MEDS: MAXIPIME 1 GM/NS 1 GM/50 ML IVPB IV SCH (13:09)
--- NOTE | 2016-12-02 13:19 | PROGRESS NOTE ---
DATE: 12/02/2016 SUBJECTIVE: Feels better. Erythema in her legs is better. The wound is stable. She got a clean dressing on this morning. OBJECTIVE: Temperature is 97.6, pulse 69, blood pressure 112/63, oxygen saturation 99% on room air. Cellulitis much improved. Her right lower extremity is, otherwise, well perfused. Cardiovascular: Normal rate. General: She is alert and oriented, although we have a repetitive conversation which is the same related to her dementia. LABORATORY DATA: Yesterday, white count was normal. Glucose was normal at 85. ASSESSMENT AND PLAN: This is an 81-year-old female with a cellulitis-type picture and a chronic wound of her right leg. Initially, we suspected that she was applying Santyl ointment to her legs possibly causing some chemical irritation but, today, it became apparent to Cheryl, our wound nurse, that she was using our decontamination wipes from the hospital on her leg when it itched and now it is highly suspected that this was a chemical irritation from these wipes that I recommended not be applied to topical skin. We have had multiple discussions with the patient. In order to prevent any further confusion, we are stopping all agents other than topical Vaseline to help with some of her skin irritation that she has. She will continue to keep the dressing clean. Dr. Conde is switching her over to p.o. antibiotics with clindamycin, and I can follow her in the next 1-2 weeks as an outpatient to monitor this wound. We have had multiple discussions with the family and the patient, but I think the patient's dementia is causing a barrier here, but the family also understands instructions as well. I think she is, otherwise, safe for discharge. cc: MD Boy Mccullough MD
[2016-12-02 17:14] VITALS: BP 108/48
--- NOTE | 2016-12-02 18:26 | DISCHARGE SUMMARY ---
ADMISSION DATE: 11/25/2016 DISCHARGE DATE: 12/02/2016 FINAL DISCHARGE DIAGNOSES: 1. Nonhealing ulcer on the right leg. 2. Cellulitis on the right leg. 3. Contact dermatitis on both the forearms. 4. Low back pain with radiculopathy. 5. Hemorrhoid. 6. Dementia. 7. Gastritis. 8. Vitamin D deficiency. HISTORY OF PRESENT ILLNESS: Ms. Carbajal is an 81-year-old, white female patient who had ulcer on the right leg, not healing. It was looking worse, more infected. The patient was seen by a surgeon. The patient also had surrounding redness and warmth. It was decided to admit the patient for further care. I evaluated the patient. The patient was more sick and we admitted the patient and started her on IV antibiotics, symptomatic treatment and wound care. The patient was complaining of low back pain with radiculopathy. She was treated with pain medicine. The patient did have perirectal pain which she was attributing to her hemorrhoid. I started her on Preparation H. The patient does have dementia. Her clinical condition stabilized and improved. Overall patient is doing better. The patient was eager to go home. The patient was seen by surgeon who discharged patient. He recommended just plain Vaseline in on the ulcer. I am going to use Kenalog cream on the rash. Advised patient not to scratch. Preparation H for hemorrhoidal pain. Overall patient is doing better. DISPOSITION: We will discharge her home today. FOLLOWUP: Discussed with the patient and [id number] to have follow up with her back surgeon. Overall discharge condition satisfactory. LABORATORY DATA: Done yesterday, hemoglobin 11.1, hematocrit 35.5, WBC count 5.34, platelet count 357,000. Electrolytes were fairly benign. Vitamin B12 level was 1643, folate 17.6, urinalysis did reveal 10-20 WBC's. Urine culture was negative. DISCHARGE INSTRUCTIONS: Overall patient received maximum benefit of hospitalization. We will discharge her home. Follow up with me in a 1 week. Follow up with surgeon in 2 weeks. Fall precaution. Wound care. In case of more distress, call us back or go to the emergency room. Overall discharge condition satisfactory. cc: Boy Conde MD
== END 2016-12-02 18:33 | disposition home or self-care (01) ==
LOC: DIRADM 12:10 → 4N 12:49
PROVIDERS: ADMIT Internal Medicine; ATTEND Internal Medicine